=== PATIENT | female | born 1960 | race Caucasian/White ===

== ENCOUNTER 2016-08-14 23:23 | Emergency (ER) | payer MEDICARE, MEDICAID ==
[2016-08-15] MEDS ORDERED: Azithromycin 250 MG TAB ONE (00:46)
[2016-08-15] MEDS ORDERED: methylPREDNISolone Sod Succ/PF 125 MG/2 ML VIAL ONE (00:46)
--- NOTE | 2016-08-15 06:59 | RAD ---
CHEST 2 VIEWS: Date: 08/14/16 Comparison made with the 11/10/15 study. FINDINGS: The heart size is stable. Median sternotomy sutures are seen from prior surgery. There is no vascula r congestion, edema, or pleural fluid. The lungs are hyperexpanded. No lobar consolidations seen. A little haziness in the right cardiophre deion angle and lingula are most likely fat pads. A definite significant infiltrate here could not be confirmed. No nodular densities were seen. The trachea is midline. Mild scoliosis is present. IMPRESSION: Fairly stable exam showing hyperexpanded lungs but no definite acute findings. If symptoms continue and further workup is needed, a CT might be considered to look for pathology that cannot be seen on the chest film. POS: HOME
== END 2016-08-15 01:05 | disposition home or self-care (01) ==
LOC: BURERS 23:23
DX: J44.0 Chronic obstructive pulmonary disease with (acute) lower respiratory infection (principal); J20.9 Acute bronchitis, unspecified; I25.2 Old myocardial infarction; I11.0 Hypertensive heart disease with heart failure; I50.9 Heart failure, unspecified; I25.10 Atherosclerotic heart disease of native coronary artery without angina pectoris; F32.9 Major depressive disorder, single episode, unspecified; F17.210 Nicotine dependence, cigarettes, uncomplicated; Z79.52 Long term (current) use of systemic steroids; Z79.82 Long term (current) use of aspirin; Z79.899 Other long term (current) drug therapy
CPT/HCPCS: 71020; 96372; J2930

== ENCOUNTER 2016-09-22 15:23 | Outpatient (CLI) | payer MEDICARE, MEDICAID ==
[2016-09-22 15:43] LABS: #Basophils 0.1 thou/uL (0.0-0.2); #Eosinphils 0.2 thou/uL (0.0-0.7); #Lymphocytes 2.2 thou/uL (1.20-3.40); #Monocytes 0.3 thou/uL (0.11-0.59); #Neutrophils 3.7 thou/uL (1.40-6.50); %Basophils 1.9 % (0.0-1.0); %Eosinophils 2.9 % (0.0-10.0); %Lymphocytes 33.2 % (21.0-51.0); %Monocytes 4.6 % (0.0-10.0); %Neutrophils 57.4 % (42.0-75.0); Hemoglobin 13.8 g/dL (12.0-16.0); Mean Corpuscular HGB CONC 34.5 g/dL (32.0-36.0); Mean Corpuscular Hemoglobin 31.5 pg (27.0-31.0); Mean Corpuscular Volume 91.4 fl (81.0-99.0); Mean Platelet Volume 7.2 fL (7.4-10.4); Platelet Count 267 thou/uL (130-400); Red Blood Cell (RBC) Count 4.38 mill/uL (4.20-5.40); White Blood Cell (WBC) Count 6.5 thou/uL (4.8-10.8)
[2016-09-22 15:58] LABS: ALT (SGPT) 6 U/L (0-55); AST (SGOT) 12 U/L (5-34); Albumin 3.7 g/dL (3.5-5.0); Alkaline Phosphatase 112 U/L (40-150); Anion Gap 13 mmol/L (10-20); BUN (Urea Nitrogen) 10 mg/dL (9.8-20.1); Bilirubin, Total 0.3 mg/dL (0.2-1.2); Calc. Creatinine Clearance 0 mL/min (70-130); Calcium 8.9 mg/dL (7.8-10.44); Carbon Dioxide 25 mmol/L (22-29); Cardiac Risk 5.4 (Less than 4.5); Chloride 109 mmol/L (98-107); Cholesterol 236 mg/dL (< 200 Desired); Estimated GFR-MDRD 54; Globulin 2.3 g/dL (2.4-3.5); Glucose 90 mg/dL (70-105); HDL Cholesterol 44 mg/dL (>60 Neg Risk); LDL Cholesterol, Calculated 161 mg/dL; Potassium 3.9 mmol/L (3.5-5.1); Sodium 143 mmol/L (136-145); Triglycerides 155 mg/dL (Less than 150)
[2016-09-22 18:38] LABS: Amphetamine Not Detected (NotDetected); Barbiturates Screen Not Detected (NotDetected); Benzodiazepine Screen Not Detected (NotDetected); Cocaine Metabolite Screen Not Detected (NotDetected); Medtox Control Line Valid? VALID (VALID); Methadone Not Detected (NotDetected); Methamphetamine Not Detected (NotDetected); Opiate Screen Detected (NotDetected); Oxycodone Screen Not Detected (NotDetected); Phencyclidine (PCP) Not Detected (NotDetected); THC/Cannabinoid Screen Not Detected (NotDetected); Tricyclic Screen Not Detected (NotDetected)
== END 2016-09-22 15:24 ==
LOC: HPCALD 15:23
PROVIDERS: ATTEND Family Medicine
DX: Z13.6 Encounter for screening for cardiovascular disorders (principal); I10 Essential (primary) hypertension; Z79.891 Long term (current) use of opiate analgesic
CPT/HCPCS: 36415; 80053; 80061; 80306; 85025

== ENCOUNTER 2016-10-16 17:36 | Emergency (ER) | payer MEDICARE, MEDICAID ==
[2016-10-16] MEDS ORDERED: Ondansetron HCl/PF 4 MG/2 ML Vial ONE (17:49)
[2016-10-16] MEDS ORDERED: Nitroglycerin 50 MG/250 ML BOT 250 ML ONE (17:49)
[2016-10-16] MEDS ORDERED: Fentanyl 100 MCG/2 ML VIAL ONE (18:08)
[2016-10-16 18:13] LABS: Band 1 % (5-11); Hemoglobin 13.3 g/dL (12.0-16.0); Lymphocytes 29 % (21-51); MDiff Complete? YES; Mean Corpuscular HGB CONC 34.8 g/dL (32.0-36.0); Mean Corpuscular Hemoglobin 31.2 pg (27.0-31.0); Mean Corpuscular Volume 89.6 fl (81.0-99.0); Mean Platelet Volume 8.5 fL (7.4-10.4); Monocytes 3 % (0-10); Neutrophil 67 % (42-75); Platelet Count 261 thou/uL (130-400); RBC Distribution Width 12.6 % (11.5-14.5); Red Blood Cell (RBC) Count 4.26 mill/uL (4.20-5.40); White Blood Cell (WBC) Count 9.4 thou/uL (4.8-10.8)
[2016-10-16 18:14] LABS: ALT (SGPT) 7 U/L (8-55); AST (SGOT) 18 U/L (5-34); Albumin 3.5 g/dL (3.5-5.0); Alkaline Phosphatase 102 U/L (40-150); Anion Gap 18 mmol/L (10-20); BUN (Urea Nitrogen) 18 mg/dL (9.8-20.1); Bilirubin, Total 0.3 mg/dL (0.2-1.2); Calc. Creatinine Clearance 0 mL/min (70-130); Calcium 8.8 mg/dL (7.8-10.44); Carbon Dioxide 19 mmol/L (22-29); Chloride 107 mmol/L (98-107); Estimated GFR-MDRD 32; Globulin 3.6 g/dL (2.4-3.5); Glucose 96 mg/dL (70-105); Lipase 26 U/L (8-78); Protein, Total 7.1 g/dL (6.0-8.3); Sodium 139 mmol/L (136-145)
[2016-10-16 18:40] LABS: Bilirubin Negative (Negative); Blood, Urine Negative (Negative); Clarity Clear (Clear); Glucose, Urine (Dipstick) Negative (Negative); Leukocyte Negative (Negative); Nitrite Negative (Negative); Protein, Urine (Dipstick) Negative (Neg-Trace); Specific Gravity, Urine 1.005 (1.005-1.030); Urobilinogen 0.2 mg/dL (0.2-1.0)
[2016-10-16 19:00] LABS: CKMB 0.8 ng/mL (0-6.6); Troponin I Less than 0.010 ng/mL (< 0.028)
--- NOTE | 2016-10-17 05:52 | RAD ---
PORTABLE CHEST 10/16/2016 An AP portable film at 1738 hours is compared with a 08/14/2016 study. The heart is normal in size. COPD with flattening of the diaphragm is noted. No acute pulmonary in filtrates were seen. No effusions or signs of vascular congestion were found. IMPRESSION: No acute thoracic findings. POS: HOME
== END 2016-10-16 19:25 | disposition short-term general hospital (02) ==
LOC: BURERS 17:36
DX: I25.110 Atherosclerotic heart disease of native coronary artery with unstable angina pectoris (principal); J43.9 Emphysema, unspecified; I25.2 Old myocardial infarction; Z95.1 Presence of aortocoronary bypass graft; I50.9 Heart failure, unspecified; F17.210 Nicotine dependence, cigarettes, uncomplicated; F32.9 Major depressive disorder, single episode, unspecified; Z79.82 Long term (current) use of aspirin; Z79.899 Other long term (current) drug therapy; I11.0 Hypertensive heart disease with heart failure
CPT/HCPCS: 29515; 36415; 71010; 80053; 81003; 82553; 83690; 83880; 84484; 85025; 93005; 94760; 96365; 96375; J2405; J3010

== ENCOUNTER 2017-04-11 16:00 | Emergency (ER) | payer MEDICARE, MEDICAID ==
[2017-04-11] MEDS ORDERED: Acetaminophen/Codeine 30-300mg Tablet ONE (17:25)
[2017-04-11 17:43] LABS: #Basophils 0.1 thou/uL (0.0-0.2); #Eosinphils 0.1 thou/uL (0.0-0.7); #Lymphocytes 1.5 thou/uL (1.20-3.40); #Monocytes 0.3 thou/uL (0.11-0.59); #Neutrophils 2.1 thou/uL (1.40-6.50); %Basophils 2.4 % (0.0-1.0); %Eosinophils 3.3 % (0.0-10.0); %Monocytes 8.1 % (0.0-10.0); %Neutrophils 50.2 % (42.0-75.0); Hemoglobin 13.6 g/dL (12.0-16.0); Mean Corpuscular HGB CONC 33.9 g/dL (32.0-36.0); Mean Corpuscular Hemoglobin 30.8 pg (27.0-31.0); Mean Platelet Volume 6.6 fL (7.4-10.4); Platelet Count 231 thou/uL (130-400); Red Blood Cell (RBC) Count 4.43 mill/uL (4.20-5.40); White Blood Cell (WBC) Count 4.1 thou/uL (4.8-10.8)
[2017-04-11 18:01] LABS: ALT (SGPT) 20 U/L (8-55); AST (SGOT) 29 U/L (5-34); Alkaline Phosphatase 126 U/L (40-150); Anion Gap 17 mmol/L (10-20); BUN (Urea Nitrogen) 15 mg/dL (9.8-20.1); Bilirubin, Total 0.5 mg/dL (0.2-1.2); Calc. Creatinine Clearance 0 mL/min (70-130); Calcium 9.5 mg/dL (7.8-10.44); Chloride 101 mmol/L (98-107); Estimated GFR-MDRD 45; Globulin 3.6 g/dL (2.4-3.5); Glucose 81 mg/dL (70-105); Potassium 3.5 mmol/L (3.5-5.1); Protein, Total 7.6 g/dL (6.0-8.3); Sodium 139 mmol/L (136-145)
[2017-04-11 18:02] LABS: CKMB 1.8 ng/mL (0-6.6); Troponin I Less than 0.010 ng/mL (< 0.028)
[2017-04-11 18:11] LABS: Carbon Dioxide 25 mmol/L (22-29)
--- NOTE | 2017-04-11 23:58 | RAD ---
CHEST TWO VIEWS 04/11/17 Comparison is made with the 10/16/16 study. The heart is normal in size. The lungs are hyperexpanded as usual. While there is no lobar infiltrate or effusion, there is perhaps a little more streaking in the right lower lobe than before. This area might bear followup if she is not improving. The lungs are otherwise clear. IMPRESSION: Hyperexpanded lungs. Possible mild increase in right basilar streaking. Cannot completely exclude an early infiltrate here. Code T POS: HOME
== END 2017-04-11 18:29 | disposition home or self-care (01) ==
LOC: BURERS 16:00
DX: I11.0 Hypertensive heart disease with heart failure (principal); I50.9 Heart failure, unspecified; R60.9 Edema, unspecified; I25.2 Old myocardial infarction; J44.9 Chronic obstructive pulmonary disease, unspecified; I25.10 Atherosclerotic heart disease of native coronary artery without angina pectoris; F41.9 Anxiety disorder, unspecified; F32.9 Major depressive disorder, single episode, unspecified; F17.210 Nicotine dependence, cigarettes, uncomplicated; Z79.899 Other long term (current) drug therapy; Z79.82 Long term (current) use of aspirin
CPT/HCPCS: 71020; 80053; 82553; 83880; 84484; 85025; 85379; 93005

== ENCOUNTER 2017-07-28 16:19 | Outpatient (CLI) | payer MEDICARE, MEDICAID ==
--- NOTE | 2017-07-28 20:45 | RAD ---
LEFT FOOT THREE VIEWS 07/28/17 No fracture or periosteal reaction was appreciated. There is slight osteopenia to the bones which cou ld mask some very subtle injuries. IMPRESSION: No acute finding. POS: HOME
--- NOTE | 2017-07-28 21:48 | RAD ---
LEFT RIBS THREE VIEWS 07/28/17 The bones are mildly osteopenic . As the result, the sensitivity of the study is lowered. No gross ri b fractures were seen. The lower ribs were seen most poorly. The adjacent lung is clear. There is pne umothorax or pleural effusion. IMPRESSION: No acute bony finding. POS: HOME
== END 2017-07-28 16:20 | disposition home or self-care (01) ==
LOC: BURRAD 16:19
PROVIDERS: ATTEND Family Medicine
DX: M79.672 Pain in left foot (principal); R07.81 Pleurodynia

== ENCOUNTER 2017-09-19 20:27 | Emergency (ER) | payer MEDICARE, MEDICAID ==
--- NOTE | 2017-09-19 21:39 | RAD ---
LEFT ANKLE THREE VIEWS: 09/19/17 HISTORY: Injury, left ankle pain. FINDINGS/IMPRESSION: The ankle mortise is maintained. No acute fracture or dislocation is seen. POS: [facility]
== END 2017-09-19 21:25 | disposition home or self-care (01) ==
LOC: BURERS 20:27
DX: S90.02XA Contusion of left ankle, initial encounter (principal); J43.9 Emphysema, unspecified; I25.2 Old myocardial infarction; I11.0 Hypertensive heart disease with heart failure; I50.9 Heart failure, unspecified; I25.10 Atherosclerotic heart disease of native coronary artery without angina pectoris; F41.9 Anxiety disorder, unspecified; F32.9 Major depressive disorder, single episode, unspecified; F17.210 Nicotine dependence, cigarettes, uncomplicated; Z79.82 Long term (current) use of aspirin; Z79.899 Other long term (current) drug therapy; Z79.51 Long term (current) use of inhaled steroids; W10.9XXA Fall (on) (from) unspecified stairs and steps, initial encounter

== ENCOUNTER 2018-04-07 16:35 | Emergency (ER) | payer MEDICARE, OTHER ==
[2018-04-07] MEDS ORDERED: Bupivacaine 0.5% 10 ML VIAL ONE (17:08)
[2018-04-07] MEDS ORDERED: Ondansetron PF 4 MG/2 ML Vial ONE (17:18)
--- NOTE | 2018-04-07 21:51 | RAD ---
RIGHT WRIST THREE VIEWS 04/07/18 A transverse fracture of the distal radius is present with slight dorsal angulation of the distal fra gment. There is also a displaced fracture of the ulnar styloid. The carpal bones are normal in appear ance and their relationships seem normal. The metacarpals appear intact. IMPRESSION: Colles' fracture of the distal radius and ulna. POS: HOME
== END 2018-04-07 18:16 | disposition home or self-care (01) ==
LOC: BURERS 16:35
DX: S52.531A Colles' fracture of right radius, initial encounter for closed fracture (principal); F41.9 Anxiety disorder, unspecified; F32.9 Major depressive disorder, single episode, unspecified; I25.10 Atherosclerotic heart disease of native coronary artery without angina pectoris; I11.0 Hypertensive heart disease with heart failure; I50.9 Heart failure, unspecified; J44.9 Chronic obstructive pulmonary disease, unspecified; F17.210 Nicotine dependence, cigarettes, uncomplicated; Z79.82 Long term (current) use of aspirin; Z79.899 Other long term (current) drug therapy; Z79.891 Long term (current) use of opiate analgesic; W18.30XA Fall on same level, unspecified, initial encounter
CPT/HCPCS: 25605; 96374; J2405; J3490

== ENCOUNTER 2018-04-14 00:17 | Emergency (ER) | payer MEDICARE, MEDICAID | END 2018-04-14 01:14 | disposition home or self-care (01) | LOC: BURERS 00:17 | DX: S52.531D Colles' fracture of right radius, subsequent encounter for closed fracture with routine healing (principal); J43.9 Emphysema, unspecified; I25.2 Old myocardial infarction; I10 Essential (primary) hypertension; F17.210 Nicotine dependence, cigarettes, uncomplicated; Z79.899 Other long term (current) drug therapy; W01.0XXD Fall on same level from slipping, tripping and stumbling without subsequent striking against object, subsequent encounter | CPT/HCPCS: 29125 ==

== ENCOUNTER 2018-04-20 18:41 | Emergency (ER) | payer MEDICARE, MEDICAID ==
[2018-04-20 19:46] LABS: #Lymphocytes 1.5 thou/uL (1.20-3.40); #Monocytes 0.7 thou/uL (0.11-0.59); #Neutrophils 5.5 thou/uL (1.40-6.50); %Basophils 0.6 % (0.0-1.0); %Eosinophils 0.3 % (0.0-10.0); %Lymphocytes 19.3 % (21.0-51.0); %Monocytes 9.2 % (0.0-10.0); %Neutrophils 70.7 % (42.0-75.0); Hemoglobin 10.4 g/dL (12.0-16.0); Mean Corpuscular Hemoglobin 28.8 pg (27.0-31.0); Mean Corpuscular Volume 87.3 fL (78.0-98.0); Mean Platelet Volume 7.9 fL (7.4-10.4); Platelet Count 243 thou/uL (130-400); RBC Distribution Width 14.4 % (11.5-14.5); Red Blood Cell (RBC) Count 3.61 mill/uL (4.20-5.40); White Blood Cell (WBC) Count 7.8 thou/uL (4.8-10.8)
[2018-04-20 20:20] LABS: BUN (Urea Nitrogen) 13 mg/dL (9.8-20.1); Bilirubin, Total 0.6 mg/dL (0.2-1.2); Calc. Creatinine Clearance 0 mL/min (70-130); Calcium 8.8 mg/dL (7.8-10.44); Carbon Dioxide 26 mmol/L (22-29); Chloride 107 mmol/L (98-107); Estimated GFR-MDRD 79; Globulin 3.3 g/dL (2.4-3.5); Glucose 107 mg/dL (70-105); Potassium 3.5 mmol/L (3.5-5.1); Protein, Total 6.3 g/dL (6.0-8.3); Sodium 144 mmol/L (136-145)
[2018-04-20 20:21] LABS: ALT (SGPT) 17 U/L (8-55); AST (SGOT) 19 U/L (5-34); Alkaline Phosphatase 138 U/L (40-150); CK (CPK) 391 U/L (29-168); Lipase 12 U/L (8-78)
[2018-04-20 20:22] LABS: Anion Gap 15 mmol/L (10-20)
[2018-04-20 21:08] LABS: CKMB 3.2 ng/mL (0-6.6)
[2018-04-20 21:10] LABS: Troponin I 1.044 ng/mL (< 0.028)
--- NOTE | 2018-04-20 21:17 | RAD ---
PORTABLE CHEST: 04/20/18 An AP portable film at 1906 is compared with the prior study of 04/09/18. Mild cardiomegaly is about the same as before. Currently, there does not appear to be true vascular c ongestion, edema, or pleural effusions. The lungs are hyperexpanded as usual. No lobar consolidation was seen. There is slight prominence of the basilar markings which is probably a combination of fibro sis and overlying breast tissue. IMPRESSION: Mild cardiomegaly. Hyperinflated lungs. No definite acute changes. POS: HOME
== END 2018-04-20 21:42 | disposition short-term general hospital (02) ==
LOC: BURERS 18:41
DX: I21.4 Non-ST elevation (NSTEMI) myocardial infarction (principal); I11.0 Hypertensive heart disease with heart failure; I50.9 Heart failure, unspecified; I25.2 Old myocardial infarction; J44.9 Chronic obstructive pulmonary disease, unspecified; I25.10 Atherosclerotic heart disease of native coronary artery without angina pectoris; F41.9 Anxiety disorder, unspecified; F32.9 Major depressive disorder, single episode, unspecified; F17.210 Nicotine dependence, cigarettes, uncomplicated; Z79.899 Other long term (current) drug therapy; Z79.82 Long term (current) use of aspirin
CPT/HCPCS: 36415; 71045; 80053; 82550; 82553; 83690; 83880; 84484; 85025; 93005; 94640; 96360; 96361; J7620

== ENCOUNTER 2018-04-29 09:57 | Inpatient (IN) | payer MEDICARE, MEDICAID ==
[2018-04-29] MEDS ORDERED: clonazePAM 0.5 MG TAB PO PRN (12:09)
[2018-04-29] MEDS ORDERED: tiZANidine HCl 4 MG TAB PO PRN (12:09)
[2018-04-29] MEDS ORDERED: PROVENTIL INHALER 6.7 G (200 INHALATIONS) INH PRN (12:09)
[2018-04-29] MEDS: fentaNYL 50 mcg/hour Patch TD SCH (13:13)
[2018-04-29] MEDS: Acetaminophen/Codeine 30-300mg Tablet PO PRN ×2 (13:19→20:15)
[2018-04-29] MEDS ORDERED: Furosemide 20 MG TAB PO SCH (15:00)
[2018-04-29] MEDS ORDERED: predniSONE 20 MG TAB PO SCH (15:00)
[2018-04-29] MEDS ORDERED: Clopidogrel Bisulfate 75 MG TAB PO SCH (15:00)
[2018-04-29] MEDS: Pregabalin 50 MG CAP PO SCH ×2 (17:15→23:38)
[2018-04-29] MEDS: Ipratropium Bromide 2.5 ml Neb NEB SCH ×2 (17:18→23:43)
[2018-04-29] MEDS: Benzonatate 100 MG CAP PO PRN (17:33)
[2018-04-29] MEDS ORDERED: Mometasone/Formoterol 60 PUFF AER INH SCH (19:00)
[2018-04-29] MEDS ORDERED: Erythromycin Base 0.5% Ophth Oint 3.5 gm Tube ONE (19:52)
[2018-04-29] MEDS: Erythromycin Base 0.5% Ophth Oint 3.5 gm Tube EA EYE SCH (20:08)
[2018-04-29] MEDS: Carvedilol 3.125 MG TAB PO SCH (20:09)
[2018-04-29] MEDS: Rosuvastatin 10 MG TAB PO SCH (20:10)
[2018-04-29] MEDS: Mometasone/Formoterol 60 PUFF AER INH SCH ×2 (20:30→20:38)
[2018-04-29] MEDS: Zolpidem Tartrate 5 MG TAB PO PRN (23:39)
[2018-04-30 05:57] LABS: ALT (SGPT) Less than 7 U/L (8-55); AST (SGOT) 11 U/L (5-34); Alkaline Phosphatase 93 U/L (40-150); Anion Gap 12 mmol/L (10-20); BUN (Urea Nitrogen) 14 mg/dL (9.8-20.1); Bilirubin, Total 0.4 mg/dL (0.2-1.2); Calc. Creatinine Clearance 54 mL/min (70-130); Calcium 8.6 mg/dL (7.8-10.44); Carbon Dioxide 26 mmol/L (22-29); Chloride 103 mmol/L (98-107); Estimated GFR-MDRD 51; Globulin 2.5 g/dL (2.4-3.5); Glucose 105 mg/dL (70-105); Potassium 3.1 mmol/L (3.5-5.1); Protein, Total 5.5 g/dL (6.0-8.3); Sodium 138 mmol/L (136-145)
[2018-04-30] MEDS: Ipratropium Bromide 2.5 ml Neb NEB SCH ×3 (06:20→17:19)
[2018-04-30] MEDS: Mometasone/Formoterol 60 PUFF AER INH SCH ×2 (06:21→18:10)
[2018-04-30 06:26] LABS: #Lymphocytes 2.1 thou/uL (1.20-3.40); #Monocytes 0.5 thou/uL (0.11-0.59); #Neutrophils 4.6 thou/uL (1.40-6.50); %Basophils 0.5 % (0.0-1.0); %Eosinophils 0.5 % (0.0-10.0); %Lymphocytes 28.8 % (21.0-51.0); %Neutrophils 63.2 % (42.0-75.0); Hemoglobin 11.6 g/dL (12.0-16.0); Mean Corpuscular HGB CONC 34.2 g/dL (32.0-36.0); Mean Corpuscular Hemoglobin 28.7 pg (27.0-31.0); Mean Corpuscular Volume 83.9 fL (78.0-98.0); Mean Platelet Volume 7.5 fL (7.4-10.4); Platelet Count 220 thou/uL (130-400); Red Blood Cell (RBC) Count 4.03 mill/uL (4.20-5.40); White Blood Cell (WBC) Count 7.3 thou/uL (4.8-10.8)
[2018-04-30] MEDS: predniSONE 20 MG TAB PO SCH (08:21)
[2018-04-30] MEDS: Pregabalin 50 MG CAP PO SCH ×3 (08:22→20:47)
[2018-04-30] MEDS: Furosemide 20 MG TAB PO SCH (08:22)
[2018-04-30] MEDS: Clopidogrel Bisulfate 75 MG TAB PO SCH (08:24)
[2018-04-30] MEDS: Erythromycin Base 0.5% Ophth Oint 3.5 gm Tube EA EYE SCH ×2 (08:25→20:48)
[2018-04-30] MEDS: Carvedilol 3.125 MG TAB PO SCH ×2 (08:25→20:46)
[2018-04-30] MEDS: Acetaminophen/Codeine 30-300mg Tablet PO PRN ×3 (08:30→22:45)
[2018-04-30] MEDS: Benzonatate 100 MG CAP PO PRN (08:39)
[2018-04-30] MEDS ORDERED: clonazePAM 0.5 MG TAB PO PRN (12:17)
[2018-04-30] MEDS: clonazePAM 1 MG TAB PO PRN (12:39)
[2018-04-30] MEDS ORDERED: Potassium Chloride 20 MEQ TAB PO SCH (15:30)
[2018-04-30] MEDS: Rosuvastatin 10 MG TAB PO SCH (20:46)
[2018-04-30] MEDS: Zolpidem Tartrate 5 MG TAB PO PRN (22:46)
[2018-05-01] MEDS: Ipratropium Bromide 2.5 ml Neb NEB SCH ×4 (00:52→18:33)
[2018-05-01] MEDS: Benzonatate 100 MG CAP PO PRN ×2 (02:43→11:23)
[2018-05-01] MEDS: clonazePAM 1 MG TAB PO PRN ×2 (02:43→22:48)
[2018-05-01] MEDS: Mometasone/Formoterol 60 PUFF AER INH SCH ×2 (06:27→18:37)
[2018-05-01] MEDS: Acetaminophen/Codeine 30-300mg Tablet PO PRN ×2 (06:37→14:58)
[2018-05-01] MEDS: Clopidogrel Bisulfate 75 MG TAB PO SCH (08:22)
[2018-05-01] MEDS: Carvedilol 3.125 MG TAB PO SCH ×2 (08:23→21:04)
[2018-05-01] MEDS: predniSONE 20 MG TAB PO SCH (08:23)
[2018-05-01] MEDS: Furosemide 20 MG TAB PO SCH (08:24)
[2018-05-01] MEDS: Erythromycin Base 0.5% Ophth Oint 3.5 gm Tube EA EYE SCH ×3 (08:24→21:04)
[2018-05-01] MEDS: Potassium Chloride 20 MEQ TAB PO SCH (08:24)
[2018-05-01] MEDS: Pregabalin 50 MG CAP PO SCH ×3 (08:25→21:03)
[2018-05-01] MEDS: Ondansetron ODT 4 MG TAB PO PRN (14:59)
[2018-05-01] MEDS: Rosuvastatin 10 MG TAB PO SCH (21:03)
[2018-05-02] MEDS: Ipratropium Bromide 2.5 ml Neb NEB SCH ×4 (03:13→17:29)
[2018-05-02] MEDS: Mometasone/Formoterol 60 PUFF AER INH SCH ×2 (06:22→18:18)
[2018-05-02] MEDS: Ondansetron ODT 4 MG TAB PO PRN (09:30)
[2018-05-02] MEDS: Pregabalin 50 MG CAP PO SCH ×3 (09:31→21:32)
[2018-05-02] MEDS: Clopidogrel Bisulfate 75 MG TAB PO SCH (09:32)
[2018-05-02] MEDS: Potassium Chloride 20 MEQ TAB PO SCH (09:33)
[2018-05-02] MEDS: Carvedilol 3.125 MG TAB PO SCH ×2 (09:33→21:33)
[2018-05-02] MEDS: predniSONE 20 MG TAB PO SCH (09:34)
[2018-05-02] MEDS: Furosemide 20 MG TAB PO SCH (09:34)
[2018-05-02] MEDS: Erythromycin Base 0.5% Ophth Oint 3.5 gm Tube EA EYE SCH ×2 (09:37→21:34)
[2018-05-02] MEDS: Acetaminophen/Codeine 30-300mg Tablet PO PRN ×3 (09:41→23:29)
[2018-05-02] MEDS: fentaNYL 50 mcg/hour Patch TD SCH (12:12)
[2018-05-02] MEDS: Rosuvastatin 10 MG TAB PO SCH (21:33)
[2018-05-03] MEDS: Ipratropium Bromide 2.5 ml Neb NEB SCH ×5 (02:44→23:35)
[2018-05-03] MEDS: Mometasone/Formoterol 60 PUFF AER INH SCH ×2 (06:03→18:47)
[2018-05-03 08:32] LABS: Anion Gap 13 mmol/L (10-20); BUN (Urea Nitrogen) 21 mg/dL (9.8-20.1); Calc. Creatinine Clearance 51 mL/min (70-130); Carbon Dioxide 25 mmol/L (22-29); Chloride 106 mmol/L (98-107); Estimated GFR-MDRD 46; Glucose 92 mg/dL (70-105); Sodium 141 mmol/L (136-145)
[2018-05-03] MEDS ORDERED: Potassium Chloride 20 MEQ TAB ONE (08:45)
[2018-05-03] MEDS: predniSONE 20 MG TAB PO SCH (08:55)
[2018-05-03] MEDS: Potassium Chloride 20 MEQ TAB PO SCH (08:56)
[2018-05-03] MEDS ORDERED: Acetaminophen/Codeine 30-300mg Tablet ONE (09:02)
[2018-05-03] MEDS: Acetaminophen/Codeine 30-300mg Tablet PO PRN ×2 (09:06→20:56)
[2018-05-03 09:47] LABS: Potassium 2.9 mmol/L (3.5-5.1)
[2018-05-03] MEDS ORDERED: Potassium Chloride 20 MEQ TAB PO SCH (10:30)
[2018-05-03] MEDS: Carvedilol 3.125 MG TAB PO SCH ×2 (10:51→20:56)
[2018-05-03] MEDS: Furosemide 20 MG TAB PO SCH (10:51)
[2018-05-03] MEDS: Clopidogrel Bisulfate 75 MG TAB PO SCH (10:52)
[2018-05-03] MEDS: Erythromycin Base 0.5% Ophth Oint 3.5 gm Tube EA EYE SCH ×2 (10:54→20:58)
[2018-05-03] MEDS: Pregabalin 50 MG CAP PO SCH ×3 (11:01→20:54)
[2018-05-03] MEDS: Rosuvastatin 10 MG TAB PO SCH (20:53)
[2018-05-04 05:14] VITALS: BMI 23.8
[2018-05-04 05:16] VITALS: BP 124/70; TEMP 97.9
[2018-05-04] MEDS: Mometasone/Formoterol 60 PUFF AER INH SCH (06:00)
[2018-05-04] MEDS: Ipratropium Bromide 2.5 ml Neb NEB SCH (06:02)
[2018-05-04 06:16] LABS: Anion Gap 13 mmol/L (10-20); BUN (Urea Nitrogen) 21 mg/dL (9.8-20.1); Calc. Creatinine Clearance 55 mL/min (70-130); Calcium 9.1 mg/dL (7.8-10.44); Carbon Dioxide 25 mmol/L (22-29); Chloride 107 mmol/L (98-107); Estimated GFR-MDRD 51; Glucose 86 mg/dL (70-105); Potassium 3.7 mmol/L (3.5-5.1); Sodium 141 mmol/L (136-145)
[2018-05-04] MEDS ORDERED: Potassium Chloride 20 MEQ TAB PO SCH (08:00)
--- NOTE | 2018-05-05 04:50 | DIS ---
DATE OF ADMISSION: 04/29/2018 DATE OF DISCHARGE: 05/04/2018 ADMISSION DIAGNOSES: Physical deconditioning; left lower lobe community- acquired pneumonia; chronic obstructive pulmonary disease; chronic diastolic congestive heart failure, status post myocardial infarction; hypokalemia; and right distal radius fracture. PROCEDURES: None. HOSPITAL COURSE: A 58-year-old female transitioned to our facility to participate with physical therapy and occupational therapy secondary to physical deconditioning. Prior to this, she was admitted and treated at [facility] in [place] for acute on chronic diastolic congestive heart failure, chronic obstructive pulmonary disease exacerbation, left lower lobe community acquired pneumonia, and hypokalemia. She completed a course of p.o. Levaquin and p.o. prednisone while here. She remained euvolemic during her stay here. Her splint was replaced with a removable brace regarding her right distal radius fracture. She remained on room air during her stay here. She was able to work with Physical Therapy and Occupational Therapy to meet the goals set forth to be able to return back to her home setting. She has [facility] to further continue with transition of care. She feels to be back to her baseline and appropriate for discharge home at this time. Only medication change during her stay will be an increase of her potassium supplementation from 20mEq to 40mEq due to hypokalemia during her stay. On the day of discharge , her potassium is back to normal at 3.7. DISPOSITION: The patient will be discharged to her home setting, and may follow up with myself in the clinic next week. She will have [facility] for further physical therapy and occupational therapy. DISCHARGE MEDICATIONS: Include; 1. ProAir HFA 2 puffs q.4 hours p.r.n. 2. Tylenol No. 3 one tab q.6 hours p.r.n. 3. Amitiza 8 mcg p.o. b.i.d. 4. Tessalon Perles 100 mg p.o. t.i.d. p.r.n. 5. Coreg 6.25 mg p.o. b.i.d. 6. Clonazepam 0.5 mg p.o. b.i.d. 7. Nexium 40 mg p.o. daily. 8. Fentanyl patch 50 mcg q.72 hours transdermal. 9. Advair b.i.d. 10. Lasix 20 mg p.o. daily. 11. Lyrica 100 mg p.o. t.i.d. 12. Crestor 40 mg p.o. at bedtime. 13. Zoloft 150 mg p.o. daily. 14. Spiriva 18 mcg inhaled daily. 15. Zanaflex 4 mg t.i.d. p.r.n. 16. Aspirin 81 mg p.o. daily. 17. Plavix 75 mg p.o. daily. 18. Ambien 5 mg p.o. at bedtime p.r.n. 19. Potassium chloride 40 mEq p.o. daily. Job ID: [id number] MTDD
== END 2018-05-04 09:02 | disposition home health service (06) | DRG 947 ==
LOC: BURMED 10:25
PROVIDERS: ADMIT Family Medicine; ATTEND Family Medicine
DX: R53.81 Other malaise (principal); J18.1 Lobar pneumonia, unspecified organism; I50.32 Chronic diastolic (congestive) heart failure; J44.0 Chronic obstructive pulmonary disease with (acute) lower respiratory infection; S52.501D Unspecified fracture of the lower end of right radius, subsequent encounter for closed fracture with routine healing; E87.6 Hypokalemia; I25.2 Old myocardial infarction; Z79.82 Long term (current) use of aspirin; Z88.0 Allergy status to penicillin; Z88.2 Allergy status to sulfonamides; Z88.8 Allergy status to other drugs, medicaments and biological substances; Z79.02 Long term (current) use of antithrombotics/antiplatelets; Z79.899 Other long term (current) drug therapy; X58.XXXD Exposure to other specified factors, subsequent encounter
CPT/HCPCS: 36415; 80048; 80053; 85025; 94640; 94664; G8978-GP-CJ; G8979-GP-CI; G8987-GO-CJ; G8988-GO-CI; J7506; J7620; Q0162

== ENCOUNTER 2018-05-07 14:14 | Outpatient (CLI) | payer MEDICARE, MEDICAID ==
--- NOTE | 2018-05-07 19:42 | RAD ---
RIGHT WRIST THREE VIEWS: 05/07/18 Comparison is made with the 04/22 study. The cast has been removed. The impacted fracture of the dist al radius and fracture of the ulnar styloid are again noted. There is still some dorsal angulation o f the distal radial fragment. Callus seems incomplete at this point. IMPRESSION: Fracture of the distal radius and ulnar styloid without significant healing at this point. POS: HOME
== END 2018-05-07 14:15 | disposition home or self-care (01) ==
LOC: BURRAD 14:14
PROVIDERS: ATTEND Family Medicine
DX: S52.501S Unspecified fracture of the lower end of right radius, sequela (principal); S52.611D Displaced fracture of right ulna styloid process, subsequent encounter for closed fracture with routine healing

== ENCOUNTER 2019-03-05 13:37 | Emergency (ER) | payer MEDICARE, MEDICAID ==
--- NOTE | 2019-03-05 15:36 | RAD ---
Right forearm 2 views HISTORY: Right arm injury. COMPARISON: 05/07/2018. FINDINGS: Healed distal radial fracture with persistent dorsal angulation is apparent. No acute fract ures visible. Ulnar styloid avulsion noted. Osseous structures are markedly demineralized. IMPRESSION: Old distal radial fracture with persistent angulation. No acute osseous abnormalities are demonstrated. Osteoporosis.
== END 2019-03-05 14:21 | disposition home or self-care (01) ==
LOC: BURERS 13:37
DX: M25.531 Pain in right wrist (principal); I25.2 Old myocardial infarction; I11.0 Hypertensive heart disease with heart failure; I50.9 Heart failure, unspecified; J44.9 Chronic obstructive pulmonary disease, unspecified; I25.10 Atherosclerotic heart disease of native coronary artery without angina pectoris; F41.9 Anxiety disorder, unspecified; F32.9 Major depressive disorder, single episode, unspecified; F17.210 Nicotine dependence, cigarettes, uncomplicated; Z79.899 Other long term (current) drug therapy; Z79.82 Long term (current) use of aspirin; Z79.51 Long term (current) use of inhaled steroids; W19.XXXA Unspecified fall, initial encounter

== ENCOUNTER 2019-08-02 19:00 | Emergency (ER) | payer MEDICARE, MEDICAID ==
[2019-08-02 19:45] LABS: #Basophils 0.1 thou/uL (0.0-0.2); #Eosinphils 0.2 thou/uL (0.0-0.7); #Lymphocytes 2.3 thou/uL (1.20-3.40); #Monocytes 0.4 thou/uL (0.11-0.59); #Neutrophils 4.5 thou/uL (1.40-6.50); %Basophils 1.3 % (0.0-1.0); %Eosinophils 2.2 % (0.0-10.0); %Lymphocytes 30.6 % (21.0-51.0); Hemoglobin 14.3 g/dL (12.0-16.0); Mean Corpuscular Volume 87.5 fL (78.0-98.0); Mean Platelet Volume 6.1 fL (7.4-10.4); Platelet Count 322 thou/uL (130-400); RBC Distribution Width 12.9 % (11.5-14.5); Red Blood Cell (RBC) Count 5.12 mill/uL (4.20-5.40); White Blood Cell (WBC) Count 7.4 thou/uL (4.8-10.8)
[2019-08-02 20:00] LABS: ALT (SGPT) 8 U/L (8-55); AST (SGOT) 18 U/L (5-34); Albumin 4.2 g/dL (3.4-4.8); Alkaline Phosphatase 136 U/L (40-110); Anion Gap 16 mmol/L (10-20); BUN (Urea Nitrogen) 11 mg/dL (9.8-20.1); Bilirubin, Total 0.4 mg/dL (0.2-1.2); Calc. Creatinine Clearance 0 mL/min (70-130); Calcium 9.6 mg/dL (7.8-10.44); Carbon Dioxide 26 mmol/L (23-31); Chloride 104 mmol/L (98-107); Estimated GFR-MDRD 56; Globulin 2.9 g/dL (2.4-3.5); Glucose 95 mg/dL (80-115); Potassium 4.8 mmol/L (3.5-5.1); Protein, Total 7.1 g/dL (6.0-8.3); Sodium 141 mmol/L (136-145)
--- NOTE | 2019-08-02 20:26 | RAD ---
PA AND LATERAL CHEST: 08/02/19 HISTORY: Shortness of breath x2 months. COMPARISON: 04/11/17 study. Heart size is within normal limits. There are postop sternotomy changes. Chronic lung changes are see n. No focal infiltrates. The bones are demineralized. IMPRESSION: Chronic lung change. POS: [facility]
[2019-08-02] MEDS ORDERED: predniSONE 20 MG TAB ONE ×2 (20:31→20:32)
[2019-08-02] MEDS ORDERED: Doxycycline 100 MG CAP ONE (20:33)
[2019-08-02] MEDS ORDERED: Acetaminophen 325 MG TAB ONE (20:33)
[2019-08-02] MEDS ORDERED: Oseltamivir 75 MG CAP ONE (20:35)
== END 2019-08-02 20:50 | disposition home or self-care (01) ==
LOC: BURERS 19:00
DX: J44.1 Chronic obstructive pulmonary disease with (acute) exacerbation (principal); I25.2 Old myocardial infarction; I11.0 Hypertensive heart disease with heart failure; I50.9 Heart failure, unspecified; I25.10 Atherosclerotic heart disease of native coronary artery without angina pectoris; F41.9 Anxiety disorder, unspecified; F32.9 Major depressive disorder, single episode, unspecified; F17.210 Nicotine dependence, cigarettes, uncomplicated; Z79.899 Other long term (current) drug therapy; Z79.82 Long term (current) use of aspirin; Z79.51 Long term (current) use of inhaled steroids
CPT/HCPCS: 71046; 80053; 83605; 84484; 85025; 93005; 94760; J7512

== ENCOUNTER 2019-12-14 20:54 | Emergency (ER) | payer MEDICARE, MEDICAID, OTHER ==
--- NOTE | 2019-12-15 07:00 | RAD ---
PORTABLE CHEST: Date: 12/14/2019 Comparison is made with the 08/02/2019 study. The heart is normal in size. Median sternotomy sutures are seen from prior surgery. The lungs are hyp erexpanded, but no acute infiltrate or effusion seen. The left hilum is a little more prominent than the right, but this may be due to the patient being turned very slightly. Should symptoms continue, t hen a follow-up CT could be needed to clear any pathology here. IMPRESSION: 1. Hyperexpanded lungs, but no definite acute findings. 2. Very minimal prominence of the left hilum, thought to be due to rotation of the patient. Follow-u p if symptoms do not improve. CODE T. POS: HOME
[2019-12-16 12:53] LABS: SARS-CoV-2 MS2 Positive; SARS-CoV-2 N Gene Negative; SARS-CoV-2 S Gene Negative; SARS-CoV-2 orf1ab Negative
== END 2019-12-14 21:43 | disposition home or self-care (01) ==
LOC: BURERS 20:54
DX: J44.9 Chronic obstructive pulmonary disease, unspecified (principal); I25.2 Old myocardial infarction; I11.0 Hypertensive heart disease with heart failure; I50.9 Heart failure, unspecified; I25.10 Atherosclerotic heart disease of native coronary artery without angina pectoris; F41.9 Anxiety disorder, unspecified; F32.9 Major depressive disorder, single episode, unspecified; F17.210 Nicotine dependence, cigarettes, uncomplicated; Z79.899 Other long term (current) drug therapy; Z79.82 Long term (current) use of aspirin; Z79.51 Long term (current) use of inhaled steroids; Z20.828 Contact with and (suspected) exposure to other viral communicable diseases
CPT/HCPCS: 71045; 87635; U0003

== ENCOUNTER 2020-02-04 10:16 | Emergency (ER) | payer MEDICARE, MEDICAID ==
[2020-02-04 10:52] LABS: #Basophils 0.1 thou/uL (0.0-0.2); #Eosinphils 0.2 thou/uL (0.0-0.7); #Lymphocytes 2.7 thou/uL (1.20-3.40); #Monocytes 0.4 thou/uL (0.11-0.59); #Neutrophils 3.3 thou/uL (1.40-6.50); %Basophils 1.4 % (0.0-1.0); %Eosinophils 2.9 % (0.0-10.0); %Lymphocytes 40.3 % (21.0-51.0); %Neutrophils 49.4 % (42.0-75.0); Hemoglobin 11.6 g/dL (12.0-16.0); Mean Corpuscular HGB CONC 31.4 g/dL (32.0-36.0); Mean Corpuscular Hemoglobin 28.1 pg (27.0-31.0); Mean Corpuscular Volume 89.4 fL (78.0-98.0); Mean Platelet Volume 6.4 fL (7.4-10.4); Platelet Count 228 thou/uL (130-400); RBC Distribution Width 13.1 % (11.5-14.5); Red Blood Cell (RBC) Count 4.14 mill/uL (4.20-5.40); White Blood Cell (WBC) Count 6.7 thou/uL (4.8-10.8)
[2020-02-04 11:05] LABS: Base Excess-Venous 1.4 mmol/L (-2.0 to 3.0); Bicarbonate (HCO3v) 26.3 mmol/L (22.0-28.0); CO2 Tension (PvCO2) 41.9 mmHg (40.0-50.0); Calcium, Ionized 1.18 mmol/L (See Comments:); Chloride 106 mmol/L (98-107); Hemoglobin - Calc 12.4 g/dL (12.0-16.0); Potassium 3.6 mmol/L (3.5-5.1); Sodium 142 mmol/L (138-145); T. Carbon Dioxide 27.6 mmol/L (22.0-28.0); vO2 Saturation-calc 89.4 % (60.0-85.0)
[2020-02-04 11:08] LABS: ALT (SGPT) 9 U/L (8-55); AST (SGOT) 13 U/L (5-34); Albumin 3.8 g/dL (3.4-4.8); Alkaline Phosphatase 116 U/L (40-110); Anion Gap 13 mmol/L (10-20); BUN (Urea Nitrogen) 14 mg/dL (9.8-20.1); Bilirubin, Total 0.3 mg/dL (0.2-1.2); Calc. Creatinine Clearance 0 mL/min (70-130); Carbon Dioxide 27 mmol/L (23-31); Chloride 105 mmol/L (98-107); Estimated GFR-MDRD 60; Globulin 2.7 g/dL (2.4-3.5); Glucose 87 mg/dL (80-115); Potassium 3.7 mmol/L (3.5-5.1); Protein, Total 6.5 g/dL (6.0-8.3); Sodium 141 mmol/L (136-145)
[2020-02-04] MEDS ORDERED: methylPREDNISolone Sod Succ/PF 125 MG/2 ML VIAL ONE (11:08)
[2020-02-04] MEDS ORDERED: Albuterol Sulfate 2.5 mg/3 ml Neb ONE (11:22)
[2020-02-04] MEDS ORDERED: Magnesium 2 GM/50 ML BAG (IN WATER) ONE (11:22)
[2020-02-04] MEDS ORDERED: Ibuprofen 800 MG TAB ONE (12:08)
--- NOTE | 2020-02-04 13:39 | RAD ---
PORTABLE CHEST 02/04/20 An AP portable film at 1039 is compared with a 12/13 exam. COPD is noted as usual with flattening of the diaphragm. The heart size is stable. While there is no gross pulmonary edema or effusion, in general the vasculature is a little more prominent than it was before and the interstitial markings are perhaps minimally more prominent. I cannot rule out very ear ly congestion, but the finding is borderline. IMPRESSION: 1. COPD. 2. Borderline increased prominence of vessels and interstitium. POS: HOME
== END 2020-02-04 12:29 | disposition home or self-care (01) ==
LOC: BURERS 10:16
DX: J44.1 Chronic obstructive pulmonary disease with (acute) exacerbation (principal); I25.2 Old myocardial infarction; I11.0 Hypertensive heart disease with heart failure; I50.9 Heart failure, unspecified; F41.9 Anxiety disorder, unspecified; F32.9 Major depressive disorder, single episode, unspecified; F17.210 Nicotine dependence, cigarettes, uncomplicated; Z79.899 Other long term (current) drug therapy; Z79.82 Long term (current) use of aspirin
CPT/HCPCS: 71045; 80053; 82330; 82803; 83880; 84484; 85025; 85379; 93005; 94640; 94760; 96365; 96375; J2930; J3475; J7611; J7620

== ENCOUNTER 2020-03-04 12:21 | Emergency (ER) | payer MEDICARE, MEDICAID ==
[2020-03-04] MEDS ORDERED: Lidocaine 1% w/Epinephrine 1:100K 20 ML VIAL ONE (12:31)
== END 2020-03-04 12:55 | disposition home or self-care (01) ==
LOC: BURERS 12:21
DX: L02.811 Cutaneous abscess of head [any part, except face] (principal); I25.2 Old myocardial infarction; I11.0 Hypertensive heart disease with heart failure; I50.9 Heart failure, unspecified; J44.9 Chronic obstructive pulmonary disease, unspecified; I25.10 Atherosclerotic heart disease of native coronary artery without angina pectoris; F32.9 Major depressive disorder, single episode, unspecified; F41.9 Anxiety disorder, unspecified; F17.210 Nicotine dependence, cigarettes, uncomplicated; Z79.82 Long term (current) use of aspirin; Z79.899 Other long term (current) drug therapy
CPT/HCPCS: 10060

== ENCOUNTER 2020-03-07 14:00 | Emergency (ER) | payer MEDICARE, MEDICAID ==
[2020-03-07] MEDS ORDERED: Clindamycin 150 MG CAP ONE (15:38)
== END 2020-03-07 15:41 | disposition home or self-care (01) ==
LOC: BURERS 14:00
DX: L03.221 Cellulitis of neck (principal); I25.2 Old myocardial infarction; I11.0 Hypertensive heart disease with heart failure; I50.9 Heart failure, unspecified; J44.9 Chronic obstructive pulmonary disease, unspecified; I25.10 Atherosclerotic heart disease of native coronary artery without angina pectoris; F41.9 Anxiety disorder, unspecified; F32.9 Major depressive disorder, single episode, unspecified; F17.210 Nicotine dependence, cigarettes, uncomplicated; Z79.899 Other long term (current) drug therapy; Z79.82 Long term (current) use of aspirin
CPT/HCPCS: 99282

== ENCOUNTER 2020-03-11 10:10 | Emergency (ER) | payer MEDICARE, MEDICAID | END 2020-03-11 10:44 | disposition home or self-care (01) | LOC: BURERS 10:10 | DX: Z48.817 Encounter for surgical aftercare following surgery on the skin and subcutaneous tissue (principal); I25.2 Old myocardial infarction; I11.0 Hypertensive heart disease with heart failure; I50.9 Heart failure, unspecified; J44.9 Chronic obstructive pulmonary disease, unspecified; I25.10 Atherosclerotic heart disease of native coronary artery without angina pectoris; F32.9 Major depressive disorder, single episode, unspecified; F41.9 Anxiety disorder, unspecified; F17.210 Nicotine dependence, cigarettes, uncomplicated; Z79.899 Other long term (current) drug therapy | CPT/HCPCS: 99282 ==

== ENCOUNTER 2020-05-14 03:50 | Emergency (ER) | payer MEDICARE, MEDICAID ==
[2020-05-14] MEDS ORDERED: Albuterol 200 PUFF (6.7GM INHALER) ONE (04:00)
[2020-05-14] MEDS ORDERED: Dexamethasone 4 MG TAB ONE (04:01)
[2020-05-14 04:39] LABS: #Basophils 0.1 thou/uL (0.0-0.2); #Eosinphils 0.2 thou/uL (0.0-0.7); #Lymphocytes 2.1 thou/uL (1.20-3.40); #Monocytes 0.5 thou/uL (0.11-0.59); #Neutrophils 6.1 thou/uL (1.40-6.50); %Basophils 1.5 % (0.0-1.0); %Lymphocytes 23.1 % (21.0-51.0); %Monocytes 5.2 % (0.0-10.0); %Neutrophils 68.2 % (42.0-75.0); Hemoglobin 12.1 g/dL (12.0-16.0); Mean Corpuscular HGB CONC 33.1 g/dL (32.0-36.0); Mean Corpuscular Hemoglobin 28.7 pg (27.0-31.0); Mean Corpuscular Volume 86.7 fL (78.0-98.0); Mean Platelet Volume 6.1 fL (7.4-10.4); Platelet Count 214 thou/uL (130-400); RBC Distribution Width 13.3 % (11.5-14.5); Red Blood Cell (RBC) Count 4.23 mill/uL (4.20-5.40); White Blood Cell (WBC) Count 8.9 thou/uL (4.8-10.8)
[2020-05-14 04:52] LABS: ALT (SGPT) 18 U/L (8-55); AST (SGOT) 28 U/L (5-34); Albumin 3.7 g/dL (3.4-4.8); Alkaline Phosphatase 98 U/L (40-110); Anion Gap 13 mmol/L (10-20); BUN (Urea Nitrogen) 13 mg/dL (9.8-20.1); Bilirubin, Total 0.4 mg/dL (0.2-1.2); Calc. Creatinine Clearance 0 mL/min (70-130); Calcium 8.8 mg/dL (7.8-10.44); Carbon Dioxide 24 mmol/L (23-31); Chloride 108 mmol/L (98-107); Globulin 2.9 g/dL (2.4-3.5); Glucose 104 mg/dL (80-115); Potassium 3.9 mmol/L (3.5-5.1); Protein, Total 6.6 g/dL (6.0-8.3); Sodium 141 mmol/L (136-145)
[2020-05-14] MEDS ORDERED: Acetaminophen 500 MG TAB ONE (05:18)
[2020-05-14] MEDS ORDERED: Aspirin Chewable 81 MG TAB ONE (05:42)
[2020-05-14] MEDS ORDERED: Enoxaparin Sodium 100 MG/ML SYRINGE ONE (05:42)
[2020-05-14] MEDS ORDERED: Furosemide 40 MG/4 ML VIAL ONE (05:42)
--- NOTE | 2020-05-14 07:04 | RAD ---
PORTABLE CHEST: Date: 05/14/2020 An AP portable film at 0514 hours is compared with a 02/04/2020 study. Findings of COPD are present as usual. No lobar infiltrate or effusion seen. No parenchymal findings that seem much different than before. The heart is stable in size. There is no vascular congestion or edema. Median sternotomy sutures are noted from prior surgery. IMPRESSION: COPD, but no acute findings. POS: HOME
[2020-05-14 14:57] LABS: SARS-CoV-2 MS2 Positive; SARS-CoV-2 N Gene Negative; SARS-CoV-2 S Gene Negative; SARS-CoV-2 by NAA Not Detected (NotDetected); SARS-CoV-2 orf1ab Negative
== END 2020-05-14 06:00 | disposition short-term general hospital (02) ==
LOC: BURERS 03:50
DX: I11.0 Hypertensive heart disease with heart failure (principal); I50.9 Heart failure, unspecified; J44.9 Chronic obstructive pulmonary disease, unspecified; I25.10 Atherosclerotic heart disease of native coronary artery without angina pectoris; Z95.1 Presence of aortocoronary bypass graft; F17.210 Nicotine dependence, cigarettes, uncomplicated; Z79.899 Other long term (current) drug therapy
CPT/HCPCS: 71045; 80053; 82553; 83880; 84484; 85025; 93005; U0003; 36415; 87635; 96372; 96374; J1650; J1940; J8540

== ENCOUNTER 2020-12-19 11:30 | Emergency (ER) | payer MEDICARE, MEDICAID ==
[2020-12-19] MEDS ORDERED: Albuterol Sulfate 1.25 MG/3 ML NEB ONE (12:06)
[2020-12-19] MEDS ORDERED: methylPREDNISolone Sod Succ/PF 125 MG/2 ML VIAL ONE (12:06)
[2020-12-19] MEDS ORDERED: Magnesium 2 GM/50 ML BAG (IN WATER) ONE (12:06)
[2020-12-19] MEDS ORDERED: Albuterol Sulfate 2.5 mg/0.5 ml Neb ONE (12:07)
[2020-12-19 12:12] LABS: #Basophils 0.1 thou/uL (0.0-0.2); #Eosinphils 0.5 thou/uL (0.0-0.7); #Lymphocytes 2.1 thou/uL (1.20-3.40); #Monocytes 0.4 thou/uL (0.11-0.59); #Neutrophils 6.5 thou/uL (1.40-6.50); %Eosinophils 5.4 % (0.0-10.0); %Lymphocytes 22.1 % (21.0-51.0); %Neutrophils 67.6 % (42.0-75.0); Hemoglobin 12.9 g/dL (12.0-16.0); Mean Corpuscular HGB CONC 30.8 g/dL (32.0-36.0); Mean Corpuscular Hemoglobin 28.4 pg (27.0-31.0); Mean Platelet Volume 6.4 fL (7.4-10.4); Platelet Count 277 thou/uL (130-400); RBC Distribution Width 16.2 % (11.5-14.5); Red Blood Cell (RBC) Count 4.53 mill/uL (4.20-5.40); White Blood Cell (WBC) Count 9.6 thou/uL (4.8-10.8)
[2020-12-19 12:28] LABS: ALT (SGPT) 27 U/L (8-55); AST (SGOT) 55 U/L (5-34); Albumin 3.3 g/dL (3.4-4.8); Alkaline Phosphatase 128 U/L (40-110); Anion Gap 13 mmol/L (10-20); BUN (Urea Nitrogen) 10 mg/dL (9.8-20.1); Bilirubin, Total 0.3 mg/dL (0.2-1.2); Calc. Creatinine Clearance 0 mL/min (70-130); Calcium 8.7 mg/dL (7.8-10.44); Carbon Dioxide 26 mmol/L (23-31); Chloride 106 mmol/L (98-107); Globulin 3.1 g/dL (2.4-3.5); Glucose 105 mg/dL (80-115); Potassium 4.6 mmol/L (3.5-5.1); Protein, Total 6.4 g/dL (5.8-8.1); Sodium 140 mmol/L (136-145)
[2020-12-20 12:12] LABS: SARS-CoV-2 PCR by NAA Not Detected (NotDetected)
== END 2020-12-19 14:34 | disposition home or self-care (01) ==
LOC: BURERS 11:30
DX: J44.1 Chronic obstructive pulmonary disease with (acute) exacerbation (principal); Z20.822 Contact with and (suspected) exposure to COVID-19; I11.0 Hypertensive heart disease with heart failure; I50.9 Heart failure, unspecified; I25.10 Atherosclerotic heart disease of native coronary artery without angina pectoris; I25.2 Old myocardial infarction; F17.210 Nicotine dependence, cigarettes, uncomplicated
CPT/HCPCS: 71045; 80053; 83605; 85025; 87040; 94640; 94760; 96374; 96375; 99285; U0003; U0005; 36415; J2930; J3475; J7611

== ENCOUNTER 2021-01-25 | Emergency (ER) | payer MEDICARE, MEDICAID | END 2021-01-25 05:50 | disposition short-term general hospital (02) | DX: J44.1 Chronic obstructive pulmonary disease with (acute) exacerbation (principal); R94.31 Abnormal electrocardiogram [ECG] [EKG]; E87.6 Hypokalemia; I25.2 Old myocardial infarction; I11.0 Hypertensive heart disease with heart failure; I50.9 Heart failure, unspecified; I25.10 Atherosclerotic heart disease of native coronary artery without angina pectoris; F17.210 Nicotine dependence, cigarettes, uncomplicated; Z79.82 Long term (current) use of aspirin; Z79.899 Other long term (current) drug therapy; Z20.822 Contact with and (suspected) exposure to COVID-19 ==

== ENCOUNTER 2021-05-16 18:50 | Emergency (ER) | payer OTHER, MEDICARE, MEDICAID | END 2021-05-16 20:18 | disposition home or self-care (01) | LOC: BURERS 18:50 | DX: S92.311A Displaced fracture of first metatarsal bone, right foot, initial encounter for closed fracture (principal); S92.321A Displaced fracture of second metatarsal bone, right foot, initial encounter for closed fracture; S92.331A Displaced fracture of third metatarsal bone, right foot, initial encounter for closed fracture; S92.341A Displaced fracture of fourth metatarsal bone, right foot, initial encounter for closed fracture; W01.0XXA Fall on same level from slipping, tripping and stumbling without subsequent striking against object, initial encounter; I25.2 Old myocardial infarction; I11.0 Hypertensive heart disease with heart failure; I50.9 Heart failure, unspecified; I25.10 Atherosclerotic heart disease of native coronary artery without angina pectoris; J44.9 Chronic obstructive pulmonary disease, unspecified; F17.210 Nicotine dependence, cigarettes, uncomplicated; Z79.82 Long term (current) use of aspirin; Z79.899 Other long term (current) drug therapy ==

== ENCOUNTER 2021-06-14 15:48 | Outpatient (CLI) | payer MEDICARE, MEDICAID | END 2021-06-14 15:49 | disposition home or self-care (01) | LOC: BURLABSP 15:48 | PROVIDERS: ATTEND Family Medicine | DX: I50.32 Chronic diastolic (congestive) heart failure (principal) | CPT/HCPCS: 83880 ==

== ENCOUNTER 2021-06-22 02:25 | Emergency (ER) | payer MEDICARE, MEDICAID ==
[2021-06-22] MEDS ORDERED: Magnesium 2 GM/50 ML BAG (IN WATER) ONE (02:48)
[2021-06-22] MEDS ORDERED: methylPREDNISolone Sod Succ/PF 125 MG/2 ML VIAL ONE (02:48)
[2021-06-22 03:17] LABS: #Basophils 0.1 thou/uL (0.0-0.2); #Eosinphils 0.3 thou/uL (0.0-0.7); #Lymphocytes 3.8 thou/uL (1.20-3.40); #Monocytes 0.8 thou/uL (0.11-0.59); #Neutrophils 7.3 thou/uL (1.40-6.50); %Basophils 1.2 % (0.0-1.0); %Eosinophils 2.6 % (0.0-10.0); %Monocytes 6.3 % (0.0-10.0); %Neutrophils 58.8 % (42.0-75.0); Hemoglobin 11.6 g/dL (12.0-16.0); Mean Corpuscular Hemoglobin 28.2 pg (27.0-31.0); Mean Corpuscular Volume 85.5 fL (78.0-98.0); Mean Platelet Volume 6.5 fL (7.4-10.4); Platelet Count 310 thou/uL (130-400); RBC Distribution Width 14.4 % (11.5-14.5); Red Blood Cell (RBC) Count 4.12 mill/uL (4.20-5.40); White Blood Cell (WBC) Count 12.3 thou/uL (4.8-10.8)
[2021-06-22] MEDS ORDERED: Albuterol Sulfate 1.25 MG/3 ML NEB ONE ×2 (03:18→03:45)
[2021-06-22 03:34] LABS: ALT (SGPT) 11 U/L (8-55); AST (SGOT) 12 U/L (5-34); Albumin 3.6 g/dL (3.4-4.8); Alkaline Phosphatase 91 U/L (40-110); Anion Gap 16 mmol/L (10-20); BUN (Urea Nitrogen) 23 mg/dL (9.8-20.1); Bilirubin, Total 0.2 mg/dL (0.2-1.2); Calc. Creatinine Clearance 0 mL/min (70-130); Calcium 9.2 mg/dL (7.8-10.44); Carbon Dioxide 27 mmol/L (23-31); Chloride 103 mmol/L (98-107); Globulin 2.5 g/dL (2.4-3.5); Glucose 120 mg/dL (80-115); Potassium 4.6 mmol/L (3.5-5.1); Protein, Total 6.1 g/dL (5.8-8.1); Sodium 141 mmol/L (136-145)
[2021-06-22] MEDS ORDERED: Ketorolac Tromethamine 30 MG/ML VIAL ONE (03:45)
== END 2021-06-22 04:30 | disposition home or self-care (01) ==
LOC: BURERS 02:25
DX: J44.1 Chronic obstructive pulmonary disease with (acute) exacerbation (principal); I45.10 Unspecified right bundle-branch block; I11.0 Hypertensive heart disease with heart failure; I50.9 Heart failure, unspecified; I25.10 Atherosclerotic heart disease of native coronary artery without angina pectoris; I25.2 Old myocardial infarction; F17.210 Nicotine dependence, cigarettes, uncomplicated; Z79.82 Long term (current) use of aspirin; Z79.899 Other long term (current) drug therapy
CPT/HCPCS: 36415; 71045; 80053; 83880; 84484; 85025; 93005; 94640; 94760; 96365; 96375; J1885; J2930; J3475; J7620

== ENCOUNTER 2021-07-09 10:50 | Emergency (ER) | payer MEDICARE, MEDICAID ==
[2021-07-09 11:27] LABS: #Basophils 0.1 thou/uL (0.0-0.2); #Eosinphils 0.1 thou/uL (0.0-0.7); #Lymphocytes 1.7 thou/uL (1.20-3.40); #Monocytes 0.3 thou/uL (0.11-0.59); %Eosinophils 1.6 % (0.0-10.0); %Lymphocytes 20.1 % (21.0-51.0); %Monocytes 4.1 % (0.0-10.0); %Neutrophils 73.2 % (42.0-75.0); Hemoglobin 11.2 g/dL (12.0-16.0); Mean Corpuscular HGB CONC 31.5 g/dL (32.0-36.0); Mean Corpuscular Hemoglobin 27.3 pg (27.0-31.0); Mean Corpuscular Volume 86.6 fL (78.0-98.0); Mean Platelet Volume 6.8 fL (7.4-10.4); Platelet Count 273 thou/uL (130-400); RBC Distribution Width 14.7 % (11.5-14.5); Red Blood Cell (RBC) Count 4.11 mill/uL (4.20-5.40); White Blood Cell (WBC) Count 8.2 thou/uL (4.8-10.8)
[2021-07-09 11:46] LABS: ALT (SGPT) 13 U/L (8-55); AST (SGOT) 34 U/L (5-34); Albumin 3.5 g/dL (3.4-4.8); Alkaline Phosphatase 115 U/L (40-110); Anion Gap 13 mmol/L (10-20); BUN (Urea Nitrogen) 14 mg/dL (9.8-20.1); Bilirubin, Total 0.4 mg/dL (0.2-1.2); Calc. Creatinine Clearance 0 mL/min (70-130); Calcium 8.7 mg/dL (7.8-10.44); Carbon Dioxide 26 mmol/L (23-31); Chloride 105 mmol/L (98-107); Globulin 2.6 g/dL (2.4-3.5); Glucose 162 mg/dL (80-115); Potassium 3.6 mmol/L (3.5-5.1); Protein, Total 6.1 g/dL (5.8-8.1); Sodium 140 mmol/L (136-145)
[2021-07-09] MEDS ORDERED: Albuterol Sulfate 2.5 mg/3 ml Neb ONE (12:33)
[2021-07-09 14:09] LABS: Lactic Acid 1.4 mmol/L (0.5-2.2)
== END 2021-07-09 14:20 | disposition home or self-care (01) ==
LOC: BURERS 10:50
DX: J44.1 Chronic obstructive pulmonary disease with (acute) exacerbation (principal); I45.10 Unspecified right bundle-branch block; I11.0 Hypertensive heart disease with heart failure; I50.9 Heart failure, unspecified; I25.10 Atherosclerotic heart disease of native coronary artery without angina pectoris; I25.2 Old myocardial infarction; F17.210 Nicotine dependence, cigarettes, uncomplicated
CPT/HCPCS: 36415; 71045; 80053; 83605; 83880; 84484; 85025; 87040; 93005; 94760; J7611; J7620

== ENCOUNTER 2021-08-13 13:03 | Outpatient (CLI) | payer MEDICARE, MEDICAID | END 2021-08-13 13:04 | disposition home or self-care (01) | LOC: BURCT 13:03 | PROVIDERS: ATTEND Family Medicine | DX: J44.9 Chronic obstructive pulmonary disease, unspecified (principal); Z98.890 Other specified postprocedural states | CPT/HCPCS: 71250 ==

== ENCOUNTER 2021-09-21 22:36 | Emergency (ER) | payer MEDICARE, MEDICAID ==
[2021-09-21] MEDS ORDERED: methylPREDNISolone Sod Succ/PF 125 MG/2 ML VIAL ONE (23:25)
[2021-09-21] MEDS ORDERED: Albuterol Sulfate 2.5 mg/0.5 ml Neb ONE ×2 (23:27→23:33)
[2021-09-21 23:40] LABS: #Basophils 0.1 thou/uL (0.0-0.2); #Eosinphils 0.1 thou/uL (0.0-0.7); #Lymphocytes 2.2 thou/uL (1.20-3.40); #Monocytes 0.6 thou/uL (0.11-0.59); #Neutrophils 8.6 thou/uL (1.40-6.50); %Eosinophils 0.7 % (0.0-10.0); %Lymphocytes 18.9 % (21.0-51.0); %Monocytes 5.1 % (0.0-10.0); %Neutrophils 74.2 % (42.0-75.0); Hemoglobin 11.1 g/dL (12.0-16.0); Mean Corpuscular HGB CONC 32.4 g/dL (32.0-36.0); Mean Corpuscular Hemoglobin 27.6 pg (27.0-31.0); Mean Platelet Volume 6.6 fL (7.4-10.4); Platelet Count 261 thou/uL (130-400); Red Blood Cell (RBC) Count 4.04 mill/uL (4.20-5.40); White Blood Cell (WBC) Count 11.6 thou/uL (4.8-10.8)
[2021-09-21] MEDS ORDERED: Doxycycline 100 MG CAP ONE (23:45)
[2021-09-21 23:48] LABS: ALT (SGPT) 13 U/L (8-55); AST (SGOT) 15 U/L (5-34); Albumin 3.8 g/dL (3.4-4.8); Alkaline Phosphatase 80 U/L (40-110); Anion Gap 19 mmol/L (10-20); BUN (Urea Nitrogen) 22 mg/dL (9.8-20.1); Bilirubin, Total 0.3 mg/dL (0.2-1.2); Calc. Creatinine Clearance 0 mL/min (70-130); Calcium 9.4 mg/dL (7.8-10.44); Carbon Dioxide 26 mmol/L (23-31); Chloride 103 mmol/L (98-107); Globulin 2.6 g/dL (2.4-3.5); Glucose 117 mg/dL (80-115); Potassium 4.5 mmol/L (3.5-5.1); Protein, Total 6.4 g/dL (5.8-8.1); Sodium 143 mmol/L (136-145)
[2021-09-22] MEDS ORDERED: Acetaminophen 500 MG TAB ONE (00:17)
== END 2021-09-22 00:40 | disposition home or self-care (01) ==
LOC: BURERS 22:36
DX: J44.1 Chronic obstructive pulmonary disease with (acute) exacerbation (principal); I11.0 Hypertensive heart disease with heart failure; I50.9 Heart failure, unspecified; I25.2 Old myocardial infarction; I25.10 Atherosclerotic heart disease of native coronary artery without angina pectoris; F17.210 Nicotine dependence, cigarettes, uncomplicated
CPT/HCPCS: 71045; 80053; 83880; 84484; 85025; 93005; 96374; J2930; J7611; J7620

== ENCOUNTER 2021-12-04 22:14 | Emergency (ER) | payer OTHER, MEDICAID ==
[2021-12-04] MEDS ORDERED: Morphine 4 MG/ML VIAL ONE (23:37)
[2021-12-04 23:56] LABS: ALT (SGPT) 12 U/L (8-55); AST (SGOT) 17 U/L (5-34); Albumin 3.7 g/dL (3.4-4.8); Alkaline Phosphatase 68 U/L (40-110); Anion Gap 11 mmol/L (10-20); BUN (Urea Nitrogen) 13 mg/dL (9.8-20.1); Bilirubin, Total 0.4 mg/dL (0.2-1.2); Calc. Creatinine Clearance 0 mL/min (70-130); Calcium 8.5 mg/dL (7.8-10.44); Carbon Dioxide 26 mmol/L (23-31); Chloride 107 mmol/L (98-107); Estimated GFR 71; Globulin 2.1 g/dL (2.4-3.5); Glucose 99 mg/dL (80-115); Lipase 19 U/L (8-78); Protein, Total 5.8 g/dL (5.8-8.1); Sodium 140 mmol/L (136-145)
[2021-12-04 23:59] LABS: #Basophils 0.1 thou/uL (0.0-0.2); #Lymphocytes 1.5 thou/uL (1.20-3.40); #Monocytes 0.3 thou/uL (0.11-0.59); #Neutrophils 6.2 thou/uL (1.40-6.50); %Basophils 1.2 % (0.0-1.0); %Eosinophils 0.4 % (0.0-10.0); %Lymphocytes 18.5 % (21.0-51.0); %Monocytes 4.1 % (0.0-10.0); %Neutrophils 75.9 % (42.0-75.0); Hemoglobin 10.5 g/dL (12.0-16.0); Mean Corpuscular HGB CONC 31.1 g/dL (32.0-36.0); Mean Corpuscular Hemoglobin 26.8 pg (27.0-31.0); Mean Corpuscular Volume 86.2 fL (78.0-98.0); Mean Platelet Volume 6.8 fL (7.4-10.4); Platelet Count 152 thou/uL (130-400); RBC Distribution Width 15.6 % (11.5-14.5); White Blood Cell (WBC) Count 8.1 thou/uL (4.8-10.8)
[2021-12-05 00:43] LABS: Bilirubin Negative (Negative); Blood, Urine Negative (Negative); Clarity Clear (Clear); Glucose, Urine (Dipstick) Negative (Negative); Ketone, Urine Negative (Negative); Leukocyte Negative (Negative); Nitrite Negative (Negative); Protein, Urine (Dipstick) Negative (Neg-Trace); Specific Gravity, Urine Greater/Equal 1.030 (1.005-1.030); Urobilinogen 0.2 mg/dL (Less than 2); pH, Urine 5.5 (5.0-9.0)
== END 2021-12-05 01:30 | disposition home or self-care (01) ==
LOC: BURERS 22:14
DX: J44.1 Chronic obstructive pulmonary disease with (acute) exacerbation (principal); R10.31 Right lower quadrant pain; I11.0 Hypertensive heart disease with heart failure; I50.9 Heart failure, unspecified; I25.2 Old myocardial infarction; I25.10 Atherosclerotic heart disease of native coronary artery without angina pectoris; F17.210 Nicotine dependence, cigarettes, uncomplicated; Z79.899 Other long term (current) drug therapy; Z79.82 Long term (current) use of aspirin
CPT/HCPCS: 71045; 74177; 80053; 81003; 83605; 83690; 84484; 85025; 93005; 96372; J2270; J7620

== ENCOUNTER 2021-12-07 03:23 | Emergency (ER) | payer OTHER ==
[2021-12-07] MEDS ORDERED: Doxycycline 100 MG CAP ONE (04:20)
== END 2021-12-07 06:32 | disposition home or self-care (01) ==
LOC: BURERS 03:23
DX: J44.1 Chronic obstructive pulmonary disease with (acute) exacerbation (principal); I25.2 Old myocardial infarction; I11.0 Hypertensive heart disease with heart failure; I50.9 Heart failure, unspecified; F17.210 Nicotine dependence, cigarettes, uncomplicated; Z79.899 Other long term (current) drug therapy
CPT/HCPCS: 71045; 94640; 94760; J7620

== ENCOUNTER 2021-12-30 14:21 | Outpatient (CLI) | payer OTHER ==
[2021-12-30 14:33] LABS: Bilirubin Negative (Negative); Blood, Urine Negative (Negative); Clarity Clear (Clear); Ketone, Urine Negative (Negative); Nitrite Positive (Negative); Protein, Urine (Dipstick) Trace mg/dL (Neg-Trace); Specific Gravity, Urine 1.025 (1.005-1.030)
[2021-12-30 14:37] LABS: Glucose, Urine (Dipstick) Unable to Interpret mg/dL (Negative); Leukocyte Negative (Negative)
[2021-12-30 14:50] LABS: Bacteria/HPF 1+ HPF (None Seen); RBC/HPF 0-3 HPF (0-3); Yeast-Budding Rare HPF (None Seen)
== END 2021-12-30 14:22 | disposition home or self-care (01) ==
LOC: BURLABSP 14:21
PROVIDERS: ATTEND Family Medicine
DX: N39.0 Urinary tract infection, site not specified (principal); R30.0 Dysuria
CPT/HCPCS: 81001; 87077; 87086

== ENCOUNTER 2022-01-21 01:56 | Observation (INO) | payer OTHER, MEDICAID ==
[2022-01-21] MEDS ORDERED: methylPREDNISolone Sod Succ/PF 125 MG/2 ML VIAL ONE (03:18)
[2022-01-21] MEDS ORDERED: Ipratropium Bromide 2.5 ml Neb ONE (03:18)
[2022-01-21] MEDS ORDERED: Albuterol Sulfate 2.5 mg/0.5 ml Neb ONE (03:18)
[2022-01-21] MEDS ORDERED: Doxycycline 100 MG CAP ONE (03:21)
[2022-01-21] MEDS ORDERED: Aspirin Chewable 81 MG TAB ONE (03:21)
[2022-01-21 03:38] LABS: #Basophils 0.1 thou/uL (0.0-0.2); #Lymphocytes 1.1 thou/uL (1.20-3.40); #Monocytes 0.5 thou/uL (0.11-0.59); #Neutrophils 10.5 thou/uL (1.40-6.50); %Basophils 0.7 % (0.0-1.0); %Eosinophils 0.3 % (0.0-10.0); %Lymphocytes 9.3 % (21.0-51.0); %Monocytes 3.9 % (0.0-10.0); %Neutrophils 85.9 % (42.0-75.0); Hemoglobin 10.8 g/dL (12.0-16.0); Mean Corpuscular HGB CONC 32.6 g/dL (32.0-36.0); Mean Corpuscular Hemoglobin 26.3 pg (27.0-31.0); Mean Corpuscular Volume 80.7 fL (78.0-98.0); Platelet Count 258 thou/uL (130-400); RBC Distribution Width 15.9 % (11.5-14.5); White Blood Cell (WBC) Count 12.3 thou/uL (4.8-10.8)
[2022-01-21 03:52] LABS: ALT (SGPT) 26 U/L (8-55); AST (SGOT) 39 U/L (5-34); Albumin 3.7 g/dL (3.4-4.8); Alkaline Phosphatase 80 U/L (40-110); Anion Gap 18 mmol/L (10-20); BUN (Urea Nitrogen) 17 mg/dL (9.8-20.1); Bilirubin, Total 0.3 mg/dL (0.2-1.2); Calc. Creatinine Clearance 0 mL/min (70-130); Calcium 8.9 mg/dL (7.8-10.44); Carbon Dioxide 26 mmol/L (23-31); Chloride 105 mmol/L (98-107); Estimated GFR 48; Globulin 2.3 g/dL (2.4-3.5); Glucose 125 mg/dL (80-115); Potassium 3.4 mmol/L (3.5-5.1); Sodium 146 mmol/L (136-145)
[2022-01-21] MEDS ORDERED: hydrOXYzine 25 MG TAB ONE (05:30)
[2022-01-21] MEDS ORDERED: Albuterol Sulfate 2.5 mg/3 ml Neb ONE (08:15)
[2022-01-21 09:06] VITALS: BMI 30.9
[2022-01-21 09:35] LABS: SARS-CoV-2 NAA Rapid Test Not Detected (NotDetected)
[2022-01-21] MEDS ORDERED: tiZANidine HCl 4 MG TAB PO PRN (10:41)
[2022-01-21] MEDS ORDERED: MECLIZINE HCL 12.5 MG PO PRN (10:41)
[2022-01-21] MEDS ORDERED: hydrOXYzine 10 MG TAB PO PRN (10:41)
[2022-01-21] MEDS ORDERED: Albuterol 200 PUFF (6.7GM INHALER) INH PRN (10:41)
[2022-01-21] MEDS ORDERED: Benzonatate 100 MG CAP PO PRN (10:41)
[2022-01-21] MEDS ORDERED: Ondansetron ODT 4 MG TAB PO PRN (11:28)
[2022-01-21] MEDS: Acetaminophen/Codeine 30-300mg Tablet PO PRN ×2 (11:33→18:09)
[2022-01-21] MEDS ORDERED: Artificial Tear Sol 15 ML BOT EA EYE PRN (12:39)
[2022-01-21] MEDS: Ipratropium Bromide 2.5 ml Neb NEB SCH ×2 (12:46→17:55)
[2022-01-21] MEDS: Pregabalin 50 MG CAP PO SCH ×2 (14:09→21:56)
[2022-01-21] MEDS: methylPREDNISolone Sod Succ 40 MG VIAL IVP SCH ×2 (14:10→21:55)
[2022-01-21] MEDS ORDERED: Furosemide 40 MG TAB PO SCH (21:00)
[2022-01-21] MEDS: Mometasone/Formoterol 200/5 60 PUFF INH SCH (21:50)
[2022-01-21] MEDS: Zolpidem Tartrate 5 MG TAB PO PRN (21:56)
[2022-01-21] MEDS: Rosuvastatin 10 MG TAB PO SCH (21:56)
[2022-01-22] MEDS: Ipratropium Bromide 2.5 ml Neb NEB SCH ×5 (00:21→23:21)
[2022-01-22] MEDS ORDERED: Furosemide 40 MG TAB ONE (05:31)
[2022-01-22] MEDS: methylPREDNISolone Sod Succ 40 MG VIAL IVP SCH ×3 (05:41→21:02)
[2022-01-22] MEDS: Furosemide 40 MG TAB PO SCH ×2 (05:42→13:38)
[2022-01-22] MEDS ORDERED: Non-Formulary Item 1 EACH (Tiotropium [Spiriva Handihaler] 18 MCG Box) INH SCH (09:00)
[2022-01-22] MEDS: Pregabalin 50 MG CAP PO SCH ×3 (09:05→20:45)
[2022-01-22] MEDS: Magnesium Oxide 400 MG TAB PO SCH (09:06)
[2022-01-22] MEDS: Clopidogrel Bisulfate 75 MG TAB PO SCH (09:06)
[2022-01-22] MEDS: Potassium Chloride 20 MEQ TAB PO SCH (09:06)
[2022-01-22] MEDS: Enoxaparin Sodium 40 MG/0.4 ML SYRINGE SC SCH (09:06)
[2022-01-22] MEDS: Mometasone/Formoterol 200/5 60 PUFF INH SCH ×2 (09:07→20:49)
[2022-01-22] MEDS: Fluticasone Propionate Nasal Spray 16 gm Bottle NASAL SCH (09:08)
[2022-01-22] MEDS: VARENICLINE TARTRATE 0.5 MG PO SCH (09:08)
[2022-01-22] MEDS: Nicotine 21 MG PATCH TD SCH (09:08)
[2022-01-22] MEDS: Acetaminophen/Codeine 30-300mg Tablet PO PRN ×2 (09:23→17:35)
[2022-01-22] MEDS: Rosuvastatin 10 MG TAB PO SCH (20:46)
[2022-01-22] MEDS: Zolpidem Tartrate 5 MG TAB PO PRN (23:18)
[2022-01-23] MEDS: Acetaminophen/Codeine 30-300mg Tablet PO PRN (01:57)
[2022-01-23] MEDS: methylPREDNISolone Sod Succ 40 MG VIAL IVP SCH (05:09)
[2022-01-23] MEDS: Furosemide 40 MG TAB PO SCH (05:09)
[2022-01-23] MEDS: Ipratropium Bromide 2.5 ml Neb NEB SCH (05:11)
[2022-01-23] MEDS: Nicotine 21 MG PATCH TD SCH (09:28)
[2022-01-23] MEDS: Enoxaparin Sodium 40 MG/0.4 ML SYRINGE SC SCH (09:28)
[2022-01-23] MEDS: Magnesium Oxide 400 MG TAB PO SCH (09:29)
[2022-01-23] MEDS: Clopidogrel Bisulfate 75 MG TAB PO SCH (09:29)
[2022-01-23] MEDS: Pregabalin 50 MG CAP PO SCH (09:30)
[2022-01-23] MEDS: Potassium Chloride 20 MEQ TAB PO SCH (09:31)
[2022-01-23] MEDS: Mometasone/Formoterol 200/5 60 PUFF INH SCH (09:32)
[2022-01-23 10:39] VITALS: BP 123/78; TEMP 98.6
[2022-01-23] MEDS: Fluticasone Propionate Nasal Spray 16 gm Bottle NASAL SCH (11:08)
[2022-01-23] MEDS: VARENICLINE TARTRATE 0.5 MG PO SCH (11:09)
== END 2022-01-23 11:35 | disposition home or self-care (01) ==
LOC: BURERS 01:56 → BURMED 07:00
PROVIDERS: ADMIT Family Medicine; ATTEND Family Medicine
DX: J44.1 Chronic obstructive pulmonary disease with (acute) exacerbation (principal); I11.0 Hypertensive heart disease with heart failure; I50.32 Chronic diastolic (congestive) heart failure; E78.5 Hyperlipidemia, unspecified; I25.10 Atherosclerotic heart disease of native coronary artery without angina pectoris; F17.210 Nicotine dependence, cigarettes, uncomplicated; R53.1 Weakness; G89.29 Other chronic pain; M54.9 Dorsalgia, unspecified; K21.9 Gastro-esophageal reflux disease without esophagitis; Z79.02 Long term (current) use of antithrombotics/antiplatelets; Z79.52 Long term (current) use of systemic steroids; Z79.899 Other long term (current) drug therapy; Z88.0 Allergy status to penicillin; Z88.2 Allergy status to sulfonamides; Z88.5 Allergy status to narcotic agent; Z88.8 Allergy status to other drugs, medicaments and biological substances; Z95.1 Presence of aortocoronary bypass graft; Z99.81 Dependence on supplemental oxygen; Z20.822 Contact with and (suspected) exposure to COVID-19
CPT/HCPCS: 71045; 80053; 84484; 85025; 93005; 94664; 96374; J1650; J2920; J2930; J7611; Q0162

== ENCOUNTER 2022-03-03 21:39 | Emergency (ER) | payer OTHER ==
[2022-03-03 22:42] LABS: #Basophils 0.1 thou/uL (0.0-0.2); #Lymphocytes 0.7 thou/uL (1.20-3.40); #Monocytes 0.1 thou/uL (0.11-0.59); #Neutrophils 9.2 thou/uL (1.40-6.50); %Basophils 0.6 % (0.0-1.0); %Eosinophils 0.1 % (0.0-10.0); %Lymphocytes 7.3 % (21.0-51.0); %Monocytes 0.7 % (0.0-10.0); %Neutrophils 91.3 % (42.0-75.0); Hemoglobin 11.4 g/dL (12.0-16.0); Mean Corpuscular HGB CONC 31.5 g/dL (32.0-36.0); Mean Corpuscular Hemoglobin 26.5 pg (27.0-31.0); Mean Corpuscular Volume 84.3 fL (78.0-98.0); Mean Platelet Volume 6.6 fL (7.4-10.4); Platelet Count 300 thou/uL (130-400); RBC Distribution Width 16.5 % (11.5-14.5); Red Blood Cell (RBC) Count 4.28 mill/uL (4.20-5.40); White Blood Cell (WBC) Count 10.1 thou/uL (4.8-10.8)
[2022-03-03] MEDS ORDERED: Ketorolac Tromethamine 30 MG/ML VIAL ONE (22:46)
[2022-03-03 22:53] LABS: ALT (SGPT) 12 U/L (8-55); AST (SGOT) 13 U/L (5-34); Alkaline Phosphatase 98 U/L (40-110); Anion Gap 18 mmol/L (10-20); BUN (Urea Nitrogen) 15 mg/dL (9.8-20.1); Bilirubin, Total 0.3 mg/dL (0.2-1.2); Calc. Creatinine Clearance 0 mL/min (70-130); Calcium 9.2 mg/dL (7.8-10.44); Carbon Dioxide 24 mmol/L (23-31); Chloride 107 mmol/L (98-107); Estimated GFR 48; Globulin 2.4 g/dL (2.4-3.5); Glucose 222 mg/dL (80-115); Lipase 23 U/L (8-78); Potassium 3.9 mmol/L (3.5-5.1); Protein, Total 6.4 g/dL (5.8-8.1); Sodium 145 mmol/L (136-145)
== END 2022-03-03 23:35 | disposition home or self-care (01) ==
LOC: BURERS 21:39
DX: J44.1 Chronic obstructive pulmonary disease with (acute) exacerbation (principal); R07.81 Pleurodynia; I45.10 Unspecified right bundle-branch block; I11.0 Hypertensive heart disease with heart failure; I50.9 Heart failure, unspecified; I25.2 Old myocardial infarction; I25.10 Atherosclerotic heart disease of native coronary artery without angina pectoris; F17.210 Nicotine dependence, cigarettes, uncomplicated; Z79.82 Long term (current) use of aspirin; Z79.899 Other long term (current) drug therapy
CPT/HCPCS: 71045; 80053; 83690; 83880; 84484; 85025; 93005; 94640; 96374; J1885; J7620

== ENCOUNTER 2022-03-04 15:17 | Outpatient (CLI) | payer OTHER | END 2022-03-04 15:18 | disposition home or self-care (01) | LOC: BURCT 15:17 | PROVIDERS: ATTEND Internal Medicine Pulmonary Disease | DX: R07.9 Chest pain, unspecified (principal); J43.9 Emphysema, unspecified; I25.10 Atherosclerotic heart disease of native coronary artery without angina pectoris | CPT/HCPCS: 71250 ==

== ENCOUNTER 2022-03-25 11:19 | Emergency (ER) | payer OTHER, MEDICAID ==
[2022-03-25 11:49] LABS: #Basophils 0.1 thou/uL (0.0-0.2); #Eosinphils 0.1 thou/uL (0.0-0.7); #Lymphocytes 2.6 thou/uL (1.20-3.40); #Monocytes 0.5 thou/uL (0.11-0.59); #Neutrophils 6.1 thou/uL (1.40-6.50); %Eosinophils 1.4 % (0.0-10.0); %Lymphocytes 27.9 % (21.0-51.0); %Monocytes 4.8 % (0.0-10.0); Mean Corpuscular HGB CONC 31.5 g/dL (32.0-36.0); Mean Corpuscular Hemoglobin 27.1 pg (27.0-31.0); Mean Corpuscular Volume 85.8 fl (78.0-98.0); Mean Platelet Volume 6.6 fL (7.4-10.4); Platelet Count 292 thou/uL (130-400); RBC Distribution Width 15.8 % (11.5-14.5); White Blood Cell (WBC) Count 9.5 thou/uL (4.8-10.8)
[2022-03-25 12:05] LABS: ALT (SGPT) 20 U/L (8-55); AST (SGOT) 28 U/L (5-34); Albumin 3.3 g/dL (3.4-4.8); Alkaline Phosphatase 87 U/L (40-110); Anion Gap 13 mmol/L (10-20); BUN (Urea Nitrogen) 15 mg/dL (9.8-20.1); Bilirubin, Total 0.3 mg/dL (0.2-1.2); Calc. Creatinine Clearance 0 mL/min (70-130); Calcium 8.7 mg/dL (7.8-10.44); Carbon Dioxide 26 mmol/L (23-31); Chloride 107 mmol/L (98-107); Estimated GFR 52; Globulin 2.1 g/dL (2.4-3.5); Glucose 178 mg/dL (80-115); Magnesium 2.1 mg/dL (1.6-2.6); Potassium 3.3 mmol/L (3.5-5.1); Protein, Total 5.4 g/dL (5.8-8.1); Sodium 143 mmol/L (136-145)
== END 2022-03-25 12:40 | disposition home or self-care (01) ==
LOC: BURERS 11:19
DX: J44.1 Chronic obstructive pulmonary disease with (acute) exacerbation (principal); I11.0 Hypertensive heart disease with heart failure; I50.9 Heart failure, unspecified; I25.10 Atherosclerotic heart disease of native coronary artery without angina pectoris; F17.210 Nicotine dependence, cigarettes, uncomplicated; E87.6 Hypokalemia; Z95.1 Presence of aortocoronary bypass graft
CPT/HCPCS: 71045; 80053; 83735; 83880; 84484; 85025; 87804; 93005; J7620

== ENCOUNTER 2022-03-27 02:24 | Emergency (ER) | payer OTHER, MEDICAID ==
[2022-03-27 03:29] LABS: #Monocytes 0.5 thou/uL (0.11-0.59); %Basophils 0.1 % (0.0-1.0); %Eosinophils 0.1 % (0.0-10.0); %Lymphocytes 8.8 % (21.0-51.0); %Monocytes 4.5 % (0.0-10.0); %Neutrophils 86.5 % (42.0-75.0); Hemoglobin 9.8 g/dL (12.0-16.0); Mean Corpuscular HGB CONC 31.1 g/dL (32.0-36.0); Mean Corpuscular Hemoglobin 27.1 pg (27.0-31.0); Mean Corpuscular Volume 87.1 fl (78.0-98.0); Mean Platelet Volume 6.8 fL (7.4-10.4); Platelet Count 295 thou/uL (130-400); RBC Distribution Width 16.7 % (11.5-14.5); Red Blood Cell (RBC) Count 3.62 mill/uL (4.20-5.40); White Blood Cell (WBC) Count 11.6 thou/uL (4.8-10.8)
[2022-03-27 03:44] LABS: ALT (SGPT) 25 U/L (8-55); AST (SGOT) 29 U/L (5-34); Albumin 3.7 g/dL (3.4-4.8); Alkaline Phosphatase 101 U/L (40-110); Anion Gap 13 mmol/L (10-20); BUN (Urea Nitrogen) 13 mg/dL (9.8-20.1); Bilirubin, Total 0.2 mg/dL (0.2-1.2); Calc. Creatinine Clearance 0 mL/min (70-130); Calcium 9.1 mg/dL (7.8-10.44); Carbon Dioxide 25 mmol/L (23-31); Chloride 112 mmol/L (98-107); Estimated GFR 49; Globulin 2.2 g/dL (2.4-3.5); Glucose 135 mg/dL (80-115); Potassium 4.2 mmol/L (3.5-5.1); Protein, Total 5.9 g/dL (5.8-8.1); Sodium 146 mmol/L (136-145)
[2022-03-27 04:04] LABS: CKMB 5.3 ng/mL (0-6.6)
[2022-03-27] MEDS ORDERED: Magnesium 2 GM/50 ML BAG (IN WATER) ONE (04:26)
[2022-03-27] MEDS ORDERED: methylPREDNISolone Sod Succ/PF 125 MG/2 ML VIAL ONE (04:26)
[2022-03-27] MEDS ORDERED: Albuterol Sulfate 2.5 mg/0.5 ml Neb ONE (04:27)
[2022-03-27] MEDS ORDERED: Furosemide 40 MG/4 ML VIAL ONE (07:01)
[2022-03-27] MEDS ORDERED: Aspirin Chewable 81 MG TAB ONE (07:01)
== END 2022-03-27 08:38 | disposition short-term general hospital (02) ==
LOC: BURERS 02:24
DX: J44.1 Chronic obstructive pulmonary disease with (acute) exacerbation (principal); I10 Essential (primary) hypertension; I50.9 Heart failure, unspecified; I25.10 Atherosclerotic heart disease of native coronary artery without angina pectoris; E78.5 Hyperlipidemia, unspecified; F17.210 Nicotine dependence, cigarettes, uncomplicated; Z79.899 Other long term (current) drug therapy; Z79.82 Long term (current) use of aspirin; R77.8 Other specified abnormalities of plasma proteins
CPT/HCPCS: 36415; 71045; 80053; 82553; 83880; 84484; 85025; 93005; 96365; 96366; 96367; 96375; J1940; J1956; J2930; J3475; J7611

== ENCOUNTER 2022-04-19 04:08 | Emergency (ER) | payer OTHER, MEDICAID ==
[2022-04-19 04:54] LABS: #Basophils 0.1 thou/uL (0.0-0.2); #Eosinphils 0.1 thou/uL (0.0-0.7); #Lymphocytes 2.2 thou/uL (1.20-3.40); #Monocytes 0.7 thou/uL (0.11-0.59); #Neutrophils 11.1 thou/uL (1.40-6.50); %Basophils 0.8 % (0.0-1.0); %Eosinophils 0.5 % (0.0-10.0); %Lymphocytes 15.3 % (21.0-51.0); %Neutrophils 78.4 % (42.0-75.0); Mean Corpuscular HGB CONC 32.2 g/dL (32.0-36.0); Mean Corpuscular Hemoglobin 27.3 pg (27.0-31.0); Mean Corpuscular Volume 84.7 fl (78.0-98.0); Mean Platelet Volume 6.6 fL (7.4-10.4); Platelet Count 282 10x3/uL (130-400); RBC Distribution Width 15.9 % (11.5-14.5); Red Blood Cell (RBC) Count 3.66 mill/uL (4.20-5.40); White Blood Cell (WBC) Count 14.2 10x3/uL (4.8-10.8)
[2022-04-19 05:17] LABS: ALT (SGPT) 31 U/L (8-55); AST (SGOT) 36 U/L (5-34); Albumin 3.9 g/dL (3.4-4.8); Alkaline Phosphatase 111 U/L (40-110); Anion Gap 16 mmol/L (10-20); BUN (Urea Nitrogen) 17 mg/dL (9.8-20.1); Bilirubin, Total 0.3 mg/dL (0.2-1.2); Calc. Creatinine Clearance 0 mL/min (70-130); Calcium 9.2 mg/dL (7.8-10.44); Carbon Dioxide 26 mmol/L (23-31); Chloride 104 mmol/L (98-107); Estimated GFR 28; Glucose 128 mg/dL (80-115); Lipase 19 U/L (8-78); Potassium 4.4 mmol/L (3.5-5.1); Protein, Total 5.9 g/dL (5.8-8.1); Sodium 142 mmol/L (136-145)
[2022-04-19] MEDS ORDERED: Ketorolac Tromethamine 30 MG/ML VIAL ONE (05:20)
[2022-04-19] MEDS ORDERED: Fentanyl 100 MCG/2 ML VIAL ONE (05:20)
[2022-04-19] MEDS ORDERED: Aspirin Chewable 81 MG TAB ONE (06:23)
[2022-04-19] MEDS ORDERED: Enoxaparin Sodium 100 MG/ML SYRINGE ONE (06:33)
[2022-04-19] MEDS ORDERED: methylPREDNISolone Sod Succ/PF 125 MG/2 ML VIAL ONE (06:39)
== END 2022-04-19 09:15 | disposition short-term general hospital (02) ==
LOC: BURERS 04:08
DX: J44.9 Chronic obstructive pulmonary disease, unspecified (principal); N28.9 Disorder of kidney and ureter, unspecified; R79.1 Abnormal coagulation profile; I11.0 Hypertensive heart disease with heart failure; I50.9 Heart failure, unspecified; I25.10 Atherosclerotic heart disease of native coronary artery without angina pectoris; E78.5 Hyperlipidemia, unspecified; I10 Essential (primary) hypertension; K21.9 Gastro-esophageal reflux disease without esophagitis; F17.210 Nicotine dependence, cigarettes, uncomplicated
CPT/HCPCS: 71045; 80053; 83690; 83880; 84484; 85025; 85379; 93005; 94760; 96372; 96374; 96375; J1650; J1885; J2930; J3010

== ENCOUNTER 2022-04-26 06:56 | Observation (INO) | payer OTHER, MEDICAID ==
[2022-04-26] MEDS ORDERED: methylPREDNISolone Sod Succ/PF 125 MG/2 ML VIAL ONE (08:37)
[2022-04-26] MEDS ORDERED: Morphine 2 MG/ML VIAL ONE ×2 (08:37→13:03)
[2022-04-26] MEDS ORDERED: Magnesium 2 GM/50 ML BAG (IN WATER) ONE (08:37)
[2022-04-26] MEDS ORDERED: Albuterol Sulfate 2.5 mg/3 ml Neb ONE (08:37)
[2022-04-26 09:08] LABS: #Basophils 0.1 thou/uL (0.0-0.2); #Lymphocytes 0.8 thou/uL (1.20-3.40); #Monocytes 0.4 thou/uL (0.11-0.59); #Neutrophils 10.1 thou/uL (1.40-6.50); %Basophils 0.5 % (0.0-1.0); %Eosinophils 0.3 % (0.0-10.0); %Monocytes 3.7 % (0.0-10.0); %Neutrophils 88.5 % (42.0-75.0); Mean Corpuscular HGB CONC 31.3 g/dL (32.0-36.0); Mean Corpuscular Hemoglobin 26.7 pg (27.0-31.0); Mean Corpuscular Volume 85.3 fl (78.0-98.0); Mean Platelet Volume 7.3 fL (7.4-10.4); Platelet Count 246 10x3/uL (130-400); RBC Distribution Width 15.6 % (11.5-14.5); Red Blood Cell (RBC) Count 3.75 mill/uL (4.20-5.40); White Blood Cell (WBC) Count 11.4 10x3/uL (4.8-10.8)
[2022-04-26 09:25] LABS: ALT (SGPT) 49 U/L (8-55); AST (SGOT) 53 U/L (5-34); Albumin 3.6 g/dL (3.4-4.8); Alkaline Phosphatase 161 U/L (40-110); Anion Gap 14 mmol/L (10-20); BUN (Urea Nitrogen) 18 mg/dL (9.8-20.1); Bilirubin, Total 0.5 mg/dL (0.2-1.2); Calc. Creatinine Clearance 0 mL/min (70-130); Carbon Dioxide 25 mmol/L (23-31); Chloride 108 mmol/L (98-107); Estimated GFR 57; Glucose 144 mg/dL (80-115); Potassium 3.6 mmol/L (3.5-5.1); Protein, Total 5.6 g/dL (5.8-8.1); Sodium 143 mmol/L (136-145)
[2022-04-26] MEDS ORDERED: Doxycycline 100 MG CAP ONE (10:19)
[2022-04-26 12:58] LABS: SARS-CoV-2 NAA Rapid Test Not Detected (NotDetected)
[2022-04-26] MEDS ORDERED: Ondansetron ODT 4 MG TAB SL PRN (14:30)
[2022-04-26] MEDS ORDERED: Ondansetron PF 4 MG/2 ML Vial IVP PRN (14:30)
[2022-04-26] MEDS ORDERED: Prevnar 13-Val Conj/PF 0.5 ML SYRINGE IM ONE (15:15)
[2022-04-26] MEDS ORDERED: FLU VACC QS2022-23(6MOS UP)/PF 60 MCG/0.5 ML SYRINGE IM ONE (15:15)
[2022-04-26] MEDS ORDERED: Benzonatate 100 MG CAP PO PRN (15:59)
[2022-04-26] MEDS ORDERED: Albuterol 200 PUFF (6.7GM INHALER) INH PRN (15:59)
[2022-04-26] MEDS ORDERED: Nicotine 14 MG PATCH TD SCH (16:00)
[2022-04-26] MEDS ORDERED: Zolpidem Tartrate 5 MG TAB PO PRN (16:17)
[2022-04-26] MEDS ORDERED: Albuterol Sulfate 2.5 mg/3 ml Neb NEB PRN (16:33)
[2022-04-26] MEDS: Ipratropium Bromide 2.5 ml Neb NEB SCH ×2 (17:59→23:43)
[2022-04-26] MEDS: Acetaminophen/Codeine 30-300mg Tablet PO PRN (18:53)
[2022-04-26] MEDS ORDERED: Furosemide 40 MG TAB PO SCH (21:00)
[2022-04-26] MEDS ORDERED: Doxycycline 100 MG CAP PO SCH (21:00)
[2022-04-26] MEDS: tiZANidine HCl 4 MG TAB PO SCH (21:20)
[2022-04-26] MEDS: Pregabalin 50 MG CAP PO SCH (21:20)
[2022-04-26] MEDS: cloNIDine 0.1 MG TAB PO SCH (21:20)
[2022-04-26] MEDS: Mometasone/Formoterol 200/5 60 PUFF INH SCH (21:21)
[2022-04-26] MEDS: hydrOXYzine 25 MG TAB PO PRN (23:50)
[2022-04-27 00:42] VITALS: BMI 30.1
[2022-04-27] MEDS: Furosemide 40 MG TAB PO SCH ×2 (05:45→14:00)
[2022-04-27] MEDS: Ipratropium Bromide 2.5 ml Neb NEB SCH ×2 (05:45→13:19)
[2022-04-27] MEDS ORDERED: predniSONE 10 MG TAB PO SCH (08:00)
[2022-04-27] MEDS ORDERED: Potassium Chloride 20 MEQ TAB PO SCH (08:00)
[2022-04-27] MEDS ORDERED: Spironolactone 25 MG TAB PO SCH (08:00)
[2022-04-27 08:07] VITALS: BP 157/78
[2022-04-27 08:15] LABS: Bilirubin Negative (Negative); Blood, Urine Trace (Negative); Clarity Clear (Clear); Glucose, Urine (Dipstick) Negative (Negative); Ketone, Urine Negative (Negative); Leukocyte Negative (Negative); Nitrite Negative (Negative); Protein, Urine (Dipstick) Negative (Neg-Trace); Urobilinogen 0.2 mg/dL (Less than 2)
[2022-04-27] MEDS: Pregabalin 50 MG CAP PO SCH (08:15)
[2022-04-27] MEDS: tiZANidine HCl 4 MG TAB PO SCH (08:17)
[2022-04-27] MEDS: cloNIDine 0.1 MG TAB PO SCH (08:17)
[2022-04-27 08:24] LABS: Bacteria/HPF None Seen HPF (None Seen); RBC/HPF 0-3 HPF (0-3); Squamous Epithelial 0-3 HPF (0-3); WBC/HPF None Seen HPF (0-3)
[2022-04-27] MEDS: Acetaminophen/Codeine 30-300mg Tablet PO PRN (08:31)
[2022-04-27] MEDS: Mometasone/Formoterol 200/5 60 PUFF INH SCH (08:33)
[2022-04-27] MEDS ORDERED: DULoxetine 30 MG CAP PO SCH (09:00)
[2022-04-27] MEDS ORDERED: Isosorbide Mononitrate 20 MG TAB PO SCH (09:00)
[2022-04-27] MEDS ORDERED: CLONIDINE 0.2 MG PO SCH (09:00)
[2022-04-27] MEDS ORDERED: Clopidogrel Bisulfate 75 MG TAB PO SCH (09:00)
[2022-04-27] MEDS ORDERED: Magnesium Oxide 400 MG TAB PO SCH (09:00)
[2022-04-27] MEDS ORDERED: Sertraline 100 MG TAB PO SCH (09:00)
[2022-04-27] MEDS ORDERED: Rosuvastatin 10 MG TAB PO SCH (09:00)
[2022-04-27 11:23] VITALS: TEMP 97.8
[2022-04-27] MEDS: hydrOXYzine 25 MG TAB PO PRN (13:29)
== END 2022-04-27 15:10 | disposition home or self-care (01) ==
LOC: BURERS 06:56 → BURMED 10:53
PROVIDERS: ADMIT Family Medicine; ATTEND Family Medicine
DX: J44.1 Chronic obstructive pulmonary disease with (acute) exacerbation (principal); F17.210 Nicotine dependence, cigarettes, uncomplicated; G89.4 Chronic pain syndrome; E78.5 Hyperlipidemia, unspecified; I13.0 Hypertensive heart and chronic kidney disease with heart failure and stage 1 through stage 4 chronic kidney disease, or unspecified chronic kidney disease; N18.31 Chronic kidney disease, stage 3a; I50.32 Chronic diastolic (congestive) heart failure; D63.1 Anemia in chronic kidney disease; I25.708 Atherosclerosis of coronary artery bypass graft(s), unspecified, with other forms of angina pectoris; H54.62 Unqualified visual loss, left eye, normal vision right eye; Z79.02 Long term (current) use of antithrombotics/antiplatelets; Z79.52 Long term (current) use of systemic steroids; Z79.899 Other long term (current) drug therapy; Z88.0 Allergy status to penicillin; Z88.2 Allergy status to sulfonamides; Z88.5 Allergy status to narcotic agent; Z88.8 Allergy status to other drugs, medicaments and biological substances; Z95.1 Presence of aortocoronary bypass graft; Z99.81 Dependence on supplemental oxygen; Z20.822 Contact with and (suspected) exposure to COVID-19
CPT/HCPCS: 36415; 80053; 81001; 83880; 84484; 85025; 90471; 90686; 94640; 94664; 96365; 96375; 96376; G0008; G0378; J2270; J2930; J3475; J7512; J7611; J7620; U0002

== ENCOUNTER 2022-05-20 17:20 | Inpatient (IN) | payer OTHER, MEDICAID ==
[2022-05-20 20:30] VITALS: BMI 30.9
[2022-05-20] MEDS ORDERED: Albuterol 200 PUFF (6.7GM INHALER) INH PRN (20:33)
[2022-05-20] MEDS: cloNIDine 0.1 MG TAB PO SCH (21:41)
[2022-05-20] MEDS: Ondansetron ODT 4 MG TAB PO PRN (21:42)
[2022-05-20] MEDS: Zolpidem Tartrate 5 MG TAB PO PRN (21:42)
[2022-05-20] MEDS: Multivit, Therapeutic 1 TAB PO SCH (21:42)
[2022-05-20] MEDS: guaiFENesin ER 600 MG TAB PO SCH (21:42)
[2022-05-20] MEDS: Furosemide 40 MG TAB PO SCH (21:43)
[2022-05-20] MEDS: tiZANidine HCl 4 MG TAB PO PRN (21:43)
[2022-05-20] MEDS: predniSONE 20 MG TAB PO SCH (21:43)
[2022-05-20] MEDS: Nicotine 14 MG PATCH TD SCH (21:54)
[2022-05-20] MEDS: Acetaminophen/Codeine 30-300mg Tablet PO SCH ×2 (23:00→23:43)
[2022-05-20] MEDS: Ipratropium Bromide 2.5 ml Neb NEB SCH (23:01)
[2022-05-20] MEDS: Benzonatate 100 MG CAP PO PRN (23:34)
[2022-05-20] MEDS: Ipratropium/Albuterol 3 ML NEB NEB PRN (23:43)
[2022-05-21] MEDS: Ipratropium Bromide 2.5 ml Neb NEB SCH ×5 (00:35→23:54)
[2022-05-21] MEDS: Acetaminophen/Codeine 30-300mg Tablet PO SCH ×4 (06:27→23:53)
[2022-05-21] MEDS: Mometasone/Formoterol 200/5 60 PUFF INH SCH ×2 (06:29→20:17)
[2022-05-21] MEDS: Ipratropium/Albuterol 3 ML NEB NEB PRN (06:30)
[2022-05-21] MEDS ORDERED: Rosuvastatin 10 MG TAB PO SCH (09:00)
[2022-05-21] MEDS: hydrOXYzine 10 MG TAB PO PRN ×2 (09:50→23:53)
[2022-05-21] MEDS: Pregabalin 50 MG CAP PO PRN ×2 (09:51→20:14)
[2022-05-21] MEDS: Sertraline 100 MG TAB PO SCH (09:52)
[2022-05-21] MEDS: Azithromycin 250 MG TAB PO SCH (09:52)
[2022-05-21] MEDS: Zinc Sulfate 220 MG CAP PO SCH (09:53)
[2022-05-21] MEDS: Ascorbic Acid 500 mg Chewable Tablet PO SCH (09:54)
[2022-05-21] MEDS: predniSONE 20 MG TAB PO SCH ×2 (09:54→20:14)
[2022-05-21] MEDS: cloNIDine 0.1 MG TAB PO SCH ×2 (09:55→20:13)
[2022-05-21] MEDS: Clopidogrel Bisulfate 75 MG TAB PO SCH (09:55)
[2022-05-21] MEDS: Magnesium Oxide 400 MG TAB PO SCH (09:56)
[2022-05-21] MEDS: Potassium Chloride 20 MEQ TAB PO SCH (09:56)
[2022-05-21] MEDS: Spironolactone 25 MG TAB PO SCH (09:56)
[2022-05-21] MEDS: Furosemide 40 MG TAB PO SCH ×2 (09:56→20:14)
[2022-05-21] MEDS: guaiFENesin ER 600 MG TAB PO SCH ×2 (09:57→20:14)
[2022-05-21] MEDS: Fluticasone Propionate Nasal Spray 16 gm Bottle NASAL SCH (09:58)
[2022-05-21] MEDS: Ondansetron ODT 4 MG TAB PO PRN (12:39)
[2022-05-21] MEDS: Zolpidem Tartrate 5 MG TAB PO PRN (20:13)
[2022-05-21] MEDS: Multivit, Therapeutic 1 TAB PO SCH (20:14)
[2022-05-21] MEDS: tiZANidine HCl 4 MG TAB PO PRN (20:14)
[2022-05-21] MEDS: Rosuvastatin 10 MG TAB PO SCH (20:16)
[2022-05-21] MEDS: Nicotine 14 MG PATCH TD SCH (21:37)
[2022-05-22] MEDS: Polyethylene Glycol 3350 17 GM Packet PO PRN (04:35)
[2022-05-22] MEDS: tiZANidine HCl 4 MG TAB PO PRN ×2 (04:35→20:25)
[2022-05-22] MEDS: Ipratropium Bromide 2.5 ml Neb NEB SCH ×3 (06:13→17:41)
[2022-05-22] MEDS: Acetaminophen/Codeine 30-300mg Tablet PO SCH ×3 (06:15→17:39)
[2022-05-22] MEDS: Furosemide 40 MG TAB PO SCH ×2 (06:16→12:36)
[2022-05-22] MEDS: Mometasone/Formoterol 200/5 60 PUFF INH SCH ×2 (06:17→18:25)
[2022-05-22] MEDS: cloNIDine 0.1 MG TAB PO SCH ×2 (08:58→20:25)
[2022-05-22] MEDS: Potassium Chloride 20 MEQ TAB PO SCH (09:00)
[2022-05-22] MEDS: Zinc Sulfate 220 MG CAP PO SCH (09:00)
[2022-05-22] MEDS: Magnesium Oxide 400 MG TAB PO SCH (09:01)
[2022-05-22] MEDS: predniSONE 20 MG TAB PO SCH ×2 (09:01→20:26)
[2022-05-22] MEDS: Spironolactone 25 MG TAB PO SCH (09:01)
[2022-05-22] MEDS: Clopidogrel Bisulfate 75 MG TAB PO SCH (09:01)
[2022-05-22] MEDS: guaiFENesin ER 600 MG TAB PO SCH ×2 (09:01→20:26)
[2022-05-22] MEDS: Ascorbic Acid 500 mg Chewable Tablet PO SCH (09:01)
[2022-05-22] MEDS: Fluticasone Propionate Nasal Spray 16 gm Bottle NASAL SCH (09:02)
[2022-05-22] MEDS: Sertraline 100 MG TAB PO SCH (09:04)
[2022-05-22] MEDS: Ondansetron ODT 4 MG TAB PO PRN (16:11)
[2022-05-22] MEDS: hydrOXYzine 10 MG TAB PO PRN (16:24)
[2022-05-22] MEDS: Benzonatate 100 MG CAP PO PRN (16:24)
[2022-05-22] MEDS: Pregabalin 50 MG CAP PO PRN (17:46)
[2022-05-22] MEDS: Zolpidem Tartrate 5 MG TAB PO PRN (20:24)
[2022-05-22] MEDS: Multivit, Therapeutic 1 TAB PO SCH (20:25)
[2022-05-22] MEDS: Nicotine 14 MG PATCH TD SCH (20:26)
[2022-05-22] MEDS: Rosuvastatin 10 MG TAB PO SCH (20:26)
[2022-05-23] MEDS: Ipratropium Bromide 2.5 ml Neb NEB SCH ×4 (00:11→18:13)
[2022-05-23] MEDS: Acetaminophen/Codeine 30-300mg Tablet PO SCH ×4 (00:12→18:13)
[2022-05-23] MEDS: hydrOXYzine 10 MG TAB PO PRN ×2 (00:13→11:10)
[2022-05-23] MEDS: Mometasone/Formoterol 200/5 60 PUFF INH SCH ×2 (06:20→18:21)
[2022-05-23] MEDS: Furosemide 40 MG TAB PO SCH ×2 (06:22→14:32)
[2022-05-23] MEDS: Polyethylene Glycol 3350 17 GM Packet PO PRN (06:23)
[2022-05-23] MEDS: guaiFENesin ER 600 MG TAB PO SCH ×2 (08:54→20:15)
[2022-05-23] MEDS: Pregabalin 50 MG CAP PO PRN ×2 (08:54→20:15)
[2022-05-23] MEDS: Ascorbic Acid 500 mg Chewable Tablet PO SCH (08:54)
[2022-05-23] MEDS: Fluticasone Propionate Nasal Spray 16 gm Bottle NASAL SCH (08:54)
[2022-05-23] MEDS: Magnesium Oxide 400 MG TAB PO SCH (08:55)
[2022-05-23] MEDS: Sertraline 100 MG TAB PO SCH (08:55)
[2022-05-23] MEDS: Spironolactone 25 MG TAB PO SCH (08:56)
[2022-05-23] MEDS: Potassium Chloride 20 MEQ TAB PO SCH (08:56)
[2022-05-23] MEDS: predniSONE 20 MG TAB PO SCH ×2 (08:56→20:16)
[2022-05-23] MEDS: Zinc Sulfate 220 MG CAP PO SCH (08:56)
[2022-05-23] MEDS: cloNIDine 0.1 MG TAB PO SCH ×2 (08:56→20:16)
[2022-05-23] MEDS: Azithromycin 250 MG TAB PO SCH (08:57)
[2022-05-23] MEDS: Clopidogrel Bisulfate 75 MG TAB PO SCH (08:57)
[2022-05-23] MEDS: tiZANidine HCl 4 MG TAB PO PRN (14:32)
[2022-05-23] MEDS: Rosuvastatin 10 MG TAB PO SCH (20:15)
[2022-05-23] MEDS: Zolpidem Tartrate 5 MG TAB PO PRN (20:15)
[2022-05-23] MEDS: Multivit, Therapeutic 1 TAB PO SCH (20:16)
[2022-05-23] MEDS: Bisacodyl 5 MG TAB PO PRN (20:17)
[2022-05-24] MEDS: Ipratropium Bromide 2.5 ml Neb NEB SCH ×4 (00:01→17:44)
[2022-05-24] MEDS: Acetaminophen/Codeine 30-300mg Tablet PO SCH ×4 (00:03→17:46)
[2022-05-24] MEDS: tiZANidine HCl 4 MG TAB PO PRN (00:04)
[2022-05-24] MEDS: Milk Of Magnesia 30 ML UDCUP PO PRN ×2 (02:40→20:28)
[2022-05-24] MEDS: Benzonatate 100 MG CAP PO PRN (02:40)
[2022-05-24] MEDS: Furosemide 40 MG TAB PO SCH ×2 (05:16→15:12)
[2022-05-24] MEDS: hydrOXYzine 25 MG TAB PO PRN ×2 (05:16→15:17)
[2022-05-24] MEDS: Pregabalin 50 MG CAP PO PRN ×2 (05:16→15:17)
[2022-05-24] MEDS: Mometasone/Formoterol 200/5 60 PUFF INH SCH ×2 (06:14→17:50)
[2022-05-24] MEDS: Polyethylene Glycol 3350 17 GM Packet PO PRN (08:41)
[2022-05-24] MEDS: Fluticasone Propionate Nasal Spray 16 gm Bottle NASAL SCH (08:42)
[2022-05-24] MEDS: cloNIDine 0.1 MG TAB PO SCH ×2 (08:44→20:28)
[2022-05-24] MEDS: Bisacodyl 5 MG TAB PO PRN (08:44)
[2022-05-24] MEDS: Sertraline 100 MG TAB PO SCH (08:45)
[2022-05-24] MEDS: guaiFENesin ER 600 MG TAB PO SCH ×2 (08:46→20:30)
[2022-05-24] MEDS: Zinc Sulfate 220 MG CAP PO SCH (08:46)
[2022-05-24] MEDS: Clopidogrel Bisulfate 75 MG TAB PO SCH (08:46)
[2022-05-24] MEDS: predniSONE 20 MG TAB PO SCH ×2 (08:46→20:29)
[2022-05-24] MEDS: Ascorbic Acid 500 mg Chewable Tablet PO SCH (08:46)
[2022-05-24] MEDS: Spironolactone 25 MG TAB PO SCH (08:47)
[2022-05-24] MEDS: Magnesium Oxide 400 MG TAB PO SCH (08:47)
[2022-05-24] MEDS: Potassium Chloride 20 MEQ TAB PO SCH (08:47)
[2022-05-24] MEDS: Ondansetron ODT 4 MG TAB PO PRN (09:26)
[2022-05-24] MEDS ORDERED: Bisacodyl 10 MG SUPP PR PRN (10:26)
[2022-05-24] MEDS: Multivit, Therapeutic 1 TAB PO SCH (20:29)
[2022-05-24] MEDS: Rosuvastatin 10 MG TAB PO SCH (20:30)
[2022-05-24] MEDS: Zolpidem Tartrate 5 MG TAB PO PRN (20:30)
[2022-05-25] MEDS: Acetaminophen/Codeine 30-300mg Tablet PO SCH ×4 (00:14→17:09)
[2022-05-25] MEDS: Ipratropium Bromide 2.5 ml Neb NEB SCH ×5 (00:15→23:39)
[2022-05-25] MEDS: Mometasone/Formoterol 200/5 60 PUFF INH SCH ×2 (06:06→18:04)
[2022-05-25] MEDS: Furosemide 40 MG TAB PO SCH ×2 (06:08→13:35)
[2022-05-25] MEDS: Sertraline 100 MG TAB PO SCH (09:33)
[2022-05-25] MEDS: Zinc Sulfate 220 MG CAP PO SCH (09:33)
[2022-05-25] MEDS: Potassium Chloride 20 MEQ TAB PO SCH (09:34)
[2022-05-25] MEDS: Ascorbic Acid 500 mg Chewable Tablet PO SCH (09:35)
[2022-05-25] MEDS: cloNIDine 0.1 MG TAB PO SCH ×2 (09:35→20:48)
[2022-05-25] MEDS: Magnesium Oxide 400 MG TAB PO SCH (09:35)
[2022-05-25] MEDS: Clopidogrel Bisulfate 75 MG TAB PO SCH (09:35)
[2022-05-25] MEDS: predniSONE 20 MG TAB PO SCH (09:35)
[2022-05-25] MEDS: Spironolactone 25 MG TAB PO SCH (09:35)
[2022-05-25] MEDS: guaiFENesin ER 600 MG TAB PO SCH ×2 (09:35→20:48)
[2022-05-25] MEDS: Fluticasone Propionate Nasal Spray 16 gm Bottle NASAL SCH (09:35)
[2022-05-25] MEDS: hydrOXYzine 25 MG TAB PO PRN (09:41)
[2022-05-25] MEDS: Polyethylene Glycol 3350 17 GM Packet PO PRN (13:43)
[2022-05-25] MEDS: Bisacodyl 5 MG TAB PO PRN (13:43)
[2022-05-25] MEDS: Milk Of Magnesia 30 ML UDCUP PO PRN (13:43)
[2022-05-25] MEDS: Pregabalin 50 MG CAP PO PRN (16:18)
[2022-05-25] MEDS: Multivit, Therapeutic 1 TAB PO SCH (20:47)
[2022-05-25] MEDS: Rosuvastatin 10 MG TAB PO SCH (20:47)
[2022-05-25] MEDS: Zolpidem Tartrate 5 MG TAB PO PRN (21:40)
[2022-05-26] MEDS: Acetaminophen/Codeine 30-300mg Tablet PO SCH ×4 (00:04→18:21)
[2022-05-26] MEDS: Furosemide 40 MG TAB PO SCH ×2 (05:35→14:31)
[2022-05-26] MEDS: Ipratropium Bromide 2.5 ml Neb NEB SCH ×3 (05:35→18:22)
[2022-05-26] MEDS: Mometasone/Formoterol 200/5 60 PUFF INH SCH ×2 (05:57→21:14)
[2022-05-26] MEDS: Potassium Chloride 20 MEQ TAB PO SCH (09:09)
[2022-05-26] MEDS: Sertraline 100 MG TAB PO SCH (09:09)
[2022-05-26] MEDS: hydrOXYzine 25 MG TAB PO PRN (09:09)
[2022-05-26] MEDS: Magnesium Oxide 400 MG TAB PO SCH (09:10)
[2022-05-26] MEDS: Zinc Sulfate 220 MG CAP PO SCH (09:10)
[2022-05-26] MEDS: Clopidogrel Bisulfate 75 MG TAB PO SCH (09:11)
[2022-05-26] MEDS: predniSONE 20 MG TAB PO SCH (09:11)
[2022-05-26] MEDS: Spironolactone 25 MG TAB PO SCH (09:12)
[2022-05-26] MEDS: Ascorbic Acid 500 mg Chewable Tablet PO SCH (09:12)
[2022-05-26] MEDS: guaiFENesin ER 600 MG TAB PO SCH ×2 (09:12→21:16)
[2022-05-26] MEDS: cloNIDine 0.1 MG TAB PO SCH ×2 (09:30→21:16)
[2022-05-26] MEDS: Fluticasone Propionate Nasal Spray 16 gm Bottle NASAL SCH (09:31)
[2022-05-26] MEDS: Milk Of Magnesia 30 ML UDCUP PO PRN (12:38)
[2022-05-26] MEDS: Ondansetron ODT 4 MG TAB PO PRN (12:38)
[2022-05-26] MEDS: Rosuvastatin 10 MG TAB PO SCH (21:15)
[2022-05-26] MEDS: Multivit, Therapeutic 1 TAB PO SCH (21:16)
[2022-05-26] MEDS: Zolpidem Tartrate 5 MG TAB PO PRN (21:16)
[2022-05-27] MEDS: Ipratropium Bromide 2.5 ml Neb NEB SCH ×5 (00:19→23:58)
[2022-05-27] MEDS: hydrOXYzine 25 MG TAB PO PRN (00:29)
[2022-05-27] MEDS: Acetaminophen/Codeine 30-300mg Tablet PO SCH ×4 (00:45→17:39)
[2022-05-27] MEDS: Furosemide 40 MG TAB PO SCH ×2 (05:52→14:53)
[2022-05-27] MEDS: Mometasone/Formoterol 200/5 60 PUFF INH SCH ×2 (06:05→21:34)
[2022-05-27] MEDS: Sertraline 100 MG TAB PO SCH (08:58)
[2022-05-27] MEDS: cloNIDine 0.1 MG TAB PO SCH ×2 (08:59→21:33)
[2022-05-27] MEDS: Spironolactone 25 MG TAB PO SCH (08:59)
[2022-05-27] MEDS: predniSONE 20 MG TAB PO SCH (09:00)
[2022-05-27] MEDS: guaiFENesin ER 600 MG TAB PO SCH ×2 (09:00→21:33)
[2022-05-27] MEDS: Zinc Sulfate 220 MG CAP PO SCH (09:00)
[2022-05-27] MEDS: Magnesium Oxide 400 MG TAB PO SCH (09:00)
[2022-05-27] MEDS: Ascorbic Acid 500 mg Chewable Tablet PO SCH (09:00)
[2022-05-27] MEDS: Potassium Chloride 20 MEQ TAB PO SCH (09:00)
[2022-05-27] MEDS: Clopidogrel Bisulfate 75 MG TAB PO SCH (09:00)
[2022-05-27] MEDS: Fluticasone Propionate Nasal Spray 16 gm Bottle NASAL SCH (09:01)
[2022-05-27] MEDS: tiZANidine HCl 4 MG TAB PO PRN (09:12)
[2022-05-27] MEDS: Ondansetron ODT 4 MG TAB PO PRN (10:50)
[2022-05-27] MEDS: Pregabalin 50 MG CAP PO PRN (14:52)
[2022-05-27] MEDS: Multivit, Therapeutic 1 TAB PO SCH (21:33)
[2022-05-27] MEDS: Benzonatate 100 MG CAP PO PRN (21:33)
[2022-05-27] MEDS: Rosuvastatin 10 MG TAB PO SCH (21:33)
[2022-05-27] MEDS: Zolpidem Tartrate 5 MG TAB PO PRN (21:33)
[2022-05-28] MEDS: Acetaminophen/Codeine 30-300mg Tablet PO SCH ×4 (00:47→17:56)
[2022-05-28] MEDS: Furosemide 40 MG TAB PO SCH ×2 (05:51→14:07)
[2022-05-28] MEDS: Ipratropium Bromide 2.5 ml Neb NEB SCH ×4 (05:51→23:43)
[2022-05-28] MEDS: Benzonatate 100 MG CAP PO PRN ×2 (06:13→21:59)
[2022-05-28] MEDS: Pregabalin 50 MG CAP PO PRN (06:13)
[2022-05-28] MEDS: Sertraline 100 MG TAB PO SCH (08:23)
[2022-05-28] MEDS: Zinc Sulfate 220 MG CAP PO SCH (08:23)
[2022-05-28] MEDS: Clopidogrel Bisulfate 75 MG TAB PO SCH (08:24)
[2022-05-28] MEDS: guaiFENesin ER 600 MG TAB PO SCH ×2 (08:24→21:15)
[2022-05-28] MEDS: cloNIDine 0.1 MG TAB PO SCH ×2 (08:24→21:16)
[2022-05-28] MEDS: hydrOXYzine 25 MG TAB PO PRN (08:25)
[2022-05-28] MEDS: Potassium Chloride 20 MEQ TAB PO SCH (08:25)
[2022-05-28] MEDS: Ascorbic Acid 500 mg Chewable Tablet PO SCH (08:25)
[2022-05-28] MEDS: predniSONE 20 MG TAB PO SCH (08:25)
[2022-05-28] MEDS: Spironolactone 25 MG TAB PO SCH (08:25)
[2022-05-28] MEDS: Magnesium Oxide 400 MG TAB PO SCH (08:26)
[2022-05-28] MEDS: Mometasone/Formoterol 200/5 60 PUFF INH SCH ×2 (08:26→21:16)
[2022-05-28] MEDS: Fluticasone Propionate Nasal Spray 16 gm Bottle NASAL SCH (08:43)
[2022-05-28] MEDS: Rosuvastatin 10 MG TAB PO SCH (21:15)
[2022-05-28] MEDS: Zolpidem Tartrate 5 MG TAB PO PRN (21:16)
[2022-05-28] MEDS: Multivit, Therapeutic 1 TAB PO SCH (21:16)
[2022-05-29] MEDS: Acetaminophen/Codeine 30-300mg Tablet PO SCH ×4 (00:03→17:59)
[2022-05-29] MEDS: Furosemide 40 MG TAB PO SCH ×2 (05:38→13:56)
[2022-05-29] MEDS: Ipratropium Bromide 2.5 ml Neb NEB SCH ×3 (05:38→17:55)
[2022-05-29] MEDS: Sertraline 100 MG TAB PO SCH (09:11)
[2022-05-29] MEDS: Potassium Chloride 20 MEQ TAB PO SCH (09:11)
[2022-05-29] MEDS: predniSONE 20 MG TAB PO SCH (09:12)
[2022-05-29] MEDS: Magnesium Oxide 400 MG TAB PO SCH (09:12)
[2022-05-29] MEDS: Zinc Sulfate 220 MG CAP PO SCH (09:12)
[2022-05-29] MEDS: Ascorbic Acid 500 mg Chewable Tablet PO SCH (09:13)
[2022-05-29] MEDS: Spironolactone 25 MG TAB PO SCH (09:13)
[2022-05-29] MEDS: guaiFENesin ER 600 MG TAB PO SCH ×2 (09:13→20:47)
[2022-05-29] MEDS: Clopidogrel Bisulfate 75 MG TAB PO SCH (09:13)
[2022-05-29] MEDS: Mometasone/Formoterol 200/5 60 PUFF INH SCH ×2 (09:33→20:48)
[2022-05-29] MEDS: cloNIDine 0.1 MG TAB PO SCH ×2 (09:34→20:47)
[2022-05-29] MEDS: Fluticasone Propionate Nasal Spray 16 gm Bottle NASAL SCH (09:34)
[2022-05-29] MEDS: Benzonatate 100 MG CAP PO PRN (14:01)
[2022-05-29] MEDS: tiZANidine HCl 4 MG TAB PO PRN (14:01)
[2022-05-29] MEDS: Rosuvastatin 10 MG TAB PO SCH (20:47)
[2022-05-29] MEDS: Multivit, Therapeutic 1 TAB PO SCH (20:47)
[2022-05-29] MEDS: hydrOXYzine 25 MG TAB PO PRN (20:51)
[2022-05-29] MEDS: Zolpidem Tartrate 5 MG TAB PO PRN (20:51)
[2022-05-30] MEDS: Ipratropium/Albuterol 3 ML NEB NEB PRN (00:01)
[2022-05-30] MEDS: tiZANidine HCl 4 MG TAB PO PRN (00:01)
[2022-05-30] MEDS: Ipratropium Bromide 2.5 ml Neb NEB SCH ×4 (00:06→18:17)
[2022-05-30] MEDS: Acetaminophen/Codeine 30-300mg Tablet PO SCH ×4 (05:10→18:16)
[2022-05-30] MEDS: Furosemide 40 MG TAB PO SCH ×2 (05:10→13:15)
[2022-05-30] MEDS: Pregabalin 50 MG CAP PO PRN ×2 (05:11→15:06)
[2022-05-30] MEDS: Sertraline 100 MG TAB PO SCH (09:27)
[2022-05-30] MEDS: cloNIDine 0.1 MG TAB PO SCH ×2 (09:27→21:31)
[2022-05-30] MEDS: predniSONE 20 MG TAB PO SCH (09:28)
[2022-05-30] MEDS: Clopidogrel Bisulfate 75 MG TAB PO SCH (09:29)
[2022-05-30] MEDS: Zinc Sulfate 220 MG CAP PO SCH (09:29)
[2022-05-30] MEDS: Fluticasone Propionate Nasal Spray 16 gm Bottle NASAL SCH (09:30)
[2022-05-30] MEDS: Ascorbic Acid 500 mg Chewable Tablet PO SCH (09:30)
[2022-05-30] MEDS: Spironolactone 25 MG TAB PO SCH (09:30)
[2022-05-30] MEDS: Magnesium Oxide 400 MG TAB PO SCH (09:30)
[2022-05-30] MEDS: guaiFENesin ER 600 MG TAB PO SCH ×2 (09:30→21:31)
[2022-05-30] MEDS: Potassium Chloride 20 MEQ TAB PO SCH (09:30)
[2022-05-30] MEDS: Mometasone/Formoterol 200/5 60 PUFF INH SCH ×2 (09:31→21:30)
[2022-05-30] MEDS: hydrOXYzine 25 MG TAB PO PRN ×2 (09:58→21:31)
[2022-05-30] MEDS: Benzonatate 100 MG CAP PO PRN (15:05)
[2022-05-30] MEDS: Cepastat Lozenges 1 LOZ PO PRN (18:33)
[2022-05-30] MEDS: Multivit, Therapeutic 1 TAB PO SCH (21:31)
[2022-05-30] MEDS: Rosuvastatin 10 MG TAB PO SCH (21:31)
[2022-05-30] MEDS: Zolpidem Tartrate 5 MG TAB PO PRN (21:31)
[2022-05-30] MEDS: Bisacodyl 5 MG TAB PO PRN (21:37)
[2022-05-31] MEDS: Ipratropium Bromide 2.5 ml Neb NEB SCH ×5 (01:00→23:59)
[2022-05-31] MEDS: Acetaminophen/Codeine 30-300mg Tablet PO SCH ×4 (01:00→18:29)
[2022-05-31] MEDS: Ipratropium/Albuterol 3 ML NEB NEB PRN (01:01)
[2022-05-31] MEDS: Furosemide 40 MG TAB PO SCH ×2 (05:31→13:22)
[2022-05-31] MEDS: Cepastat Lozenges 1 LOZ PO PRN ×2 (06:02→18:56)
[2022-05-31] MEDS: Pregabalin 50 MG CAP PO PRN ×2 (09:54→23:59)
[2022-05-31] MEDS: Sertraline 100 MG TAB PO SCH (09:55)
[2022-05-31] MEDS: Zinc Sulfate 220 MG CAP PO SCH (09:56)
[2022-05-31] MEDS: predniSONE 20 MG TAB PO SCH (09:56)
[2022-05-31] MEDS: Spironolactone 25 MG TAB PO SCH (09:57)
[2022-05-31] MEDS: Magnesium Oxide 400 MG TAB PO SCH (09:57)
[2022-05-31] MEDS: Ascorbic Acid 500 mg Chewable Tablet PO SCH (09:57)
[2022-05-31] MEDS: cloNIDine 0.1 MG TAB PO SCH ×2 (09:58→20:42)
[2022-05-31] MEDS: Potassium Chloride 20 MEQ TAB PO SCH (10:01)
[2022-05-31] MEDS: guaiFENesin ER 600 MG TAB PO SCH ×2 (10:01→20:42)
[2022-05-31] MEDS: Clopidogrel Bisulfate 75 MG TAB PO SCH (10:01)
[2022-05-31] MEDS: Mometasone/Formoterol 200/5 60 PUFF INH SCH ×2 (10:02→20:43)
[2022-05-31] MEDS: Fluticasone Propionate Nasal Spray 16 gm Bottle NASAL SCH (10:04)
[2022-05-31] MEDS: Benzonatate 100 MG CAP PO PRN (10:27)
[2022-05-31] MEDS: Milk Of Magnesia 30 ML UDCUP PO PRN (10:27)
[2022-05-31] MEDS: Multivit, Therapeutic 1 TAB PO SCH (20:42)
[2022-05-31] MEDS: Rosuvastatin 10 MG TAB PO SCH (20:42)
[2022-05-31] MEDS: Zolpidem Tartrate 5 MG TAB PO PRN (20:42)
[2022-05-31] MEDS: hydrOXYzine 25 MG TAB PO PRN (20:43)
[2022-06-01] MEDS: Ondansetron ODT 4 MG TAB PO PRN
[2022-06-01] MEDS: Acetaminophen/Codeine 30-300mg Tablet PO SCH ×4 (05:41→18:31)
[2022-06-01] MEDS: Furosemide 40 MG TAB PO SCH ×2 (05:41→13:40)
[2022-06-01] MEDS: Ipratropium Bromide 2.5 ml Neb NEB SCH ×3 (05:41→18:32)
[2022-06-01] MEDS: Clopidogrel Bisulfate 75 MG TAB PO SCH (10:18)
[2022-06-01] MEDS: guaiFENesin ER 600 MG TAB PO SCH ×2 (10:18→21:28)
[2022-06-01] MEDS: cloNIDine 0.1 MG TAB PO SCH ×2 (10:19→21:28)
[2022-06-01] MEDS: Ascorbic Acid 500 mg Chewable Tablet PO SCH (10:19)
[2022-06-01] MEDS: Potassium Chloride 20 MEQ TAB PO SCH (10:19)
[2022-06-01] MEDS: predniSONE 20 MG TAB PO SCH (10:20)
[2022-06-01] MEDS: Sertraline 100 MG TAB PO SCH (10:20)
[2022-06-01] MEDS: Zinc Sulfate 220 MG CAP PO SCH (10:20)
[2022-06-01] MEDS: Spironolactone 25 MG TAB PO SCH (10:20)
[2022-06-01] MEDS: Magnesium Oxide 400 MG TAB PO SCH (10:20)
[2022-06-01] MEDS: Milk Of Magnesia 30 ML UDCUP PO PRN (10:21)
[2022-06-01] MEDS: Bisacodyl 5 MG TAB PO PRN (10:21)
[2022-06-01] MEDS: Pregabalin 50 MG CAP PO PRN (10:34)
[2022-06-01] MEDS: Fluticasone Propionate Nasal Spray 16 gm Bottle NASAL SCH (10:35)
[2022-06-01] MEDS: Benzonatate 100 MG CAP PO PRN ×2 (10:35→21:29)
[2022-06-01] MEDS: Mometasone/Formoterol 200/5 60 PUFF INH SCH ×2 (10:36→21:27)
[2022-06-01] MEDS: Cepastat Lozenges 1 LOZ PO PRN (18:31)
[2022-06-01] MEDS: Multivit, Therapeutic 1 TAB PO SCH (21:28)
[2022-06-01] MEDS: hydrOXYzine 25 MG TAB PO PRN (21:28)
[2022-06-01] MEDS: Rosuvastatin 10 MG TAB PO SCH (21:28)
[2022-06-01] MEDS: Zolpidem Tartrate 5 MG TAB PO PRN (21:28)
[2022-06-02] MEDS: Acetaminophen/Codeine 30-300mg Tablet PO SCH ×5 (01:09→23:28)
[2022-06-02] MEDS: Ipratropium Bromide 2.5 ml Neb NEB SCH ×5 (01:09→23:28)
[2022-06-02] MEDS: Furosemide 40 MG TAB PO SCH ×3 (05:30→15:00)
[2022-06-02] MEDS: Cepastat Lozenges 1 LOZ PO PRN ×4 (05:39→20:01)
[2022-06-02] MEDS: Milk Of Magnesia 30 ML UDCUP PO PRN (09:16)
[2022-06-02] MEDS: Pregabalin 50 MG CAP PO PRN ×2 (09:16→16:12)
[2022-06-02] MEDS: Bisacodyl 5 MG TAB PO PRN (09:17)
[2022-06-02] MEDS: Zinc Sulfate 220 MG CAP PO SCH (09:17)
[2022-06-02] MEDS: Magnesium Oxide 400 MG TAB PO SCH (09:17)
[2022-06-02] MEDS: Sertraline 100 MG TAB PO SCH (09:18)
[2022-06-02] MEDS: Clopidogrel Bisulfate 75 MG TAB PO SCH (09:18)
[2022-06-02] MEDS: guaiFENesin ER 600 MG TAB PO SCH ×2 (09:18→20:01)
[2022-06-02] MEDS: predniSONE 20 MG TAB PO SCH (09:18)
[2022-06-02] MEDS: Potassium Chloride 20 MEQ TAB PO SCH (09:19)
[2022-06-02] MEDS: Spironolactone 25 MG TAB PO SCH (09:19)
[2022-06-02] MEDS: cloNIDine 0.1 MG TAB PO SCH ×2 (09:19→20:01)
[2022-06-02] MEDS: Fluticasone Propionate Nasal Spray 16 gm Bottle NASAL SCH (09:20)
[2022-06-02] MEDS: Mometasone/Formoterol 200/5 60 PUFF INH SCH ×2 (09:20→20:30)
[2022-06-02] MEDS: Ascorbic Acid 500 mg Chewable Tablet PO SCH (09:20)
[2022-06-02] MEDS: hydrOXYzine 25 MG TAB PO PRN (20:01)
[2022-06-02] MEDS: Rosuvastatin 10 MG TAB PO SCH (20:01)
[2022-06-02] MEDS: Multivit, Therapeutic 1 TAB PO SCH (20:01)
[2022-06-03] MEDS: Ipratropium Bromide 2.5 ml Neb NEB SCH ×3 (05:15→18:46)
[2022-06-03] MEDS: Furosemide 40 MG TAB PO SCH ×2 (05:15→12:42)
[2022-06-03] MEDS: Acetaminophen/Codeine 30-300mg Tablet PO SCH ×3 (05:15→18:46)
[2022-06-03] MEDS: Spironolactone 25 MG TAB PO SCH (09:01)
[2022-06-03] MEDS: Potassium Chloride 20 MEQ TAB PO SCH (09:01)
[2022-06-03] MEDS: Clopidogrel Bisulfate 75 MG TAB PO SCH (09:08)
[2022-06-03] MEDS: cloNIDine 0.1 MG TAB PO SCH ×2 (09:08→20:37)
[2022-06-03] MEDS: Ascorbic Acid 500 mg Chewable Tablet PO SCH (09:08)
[2022-06-03] MEDS: Bisacodyl 5 MG TAB PO PRN (09:08)
[2022-06-03] MEDS: guaiFENesin ER 600 MG TAB PO SCH ×2 (09:08→20:37)
[2022-06-03] MEDS: predniSONE 20 MG TAB PO SCH (09:09)
[2022-06-03] MEDS: Sertraline 100 MG TAB PO SCH (09:09)
[2022-06-03] MEDS: Magnesium Oxide 400 MG TAB PO SCH (09:09)
[2022-06-03] MEDS: Zinc Sulfate 220 MG CAP PO SCH (09:09)
[2022-06-03] MEDS: Polyethylene Glycol 3350 17 GM Packet PO PRN (09:10)
[2022-06-03] MEDS: Cepastat Lozenges 1 LOZ PO PRN ×2 (09:10→20:37)
[2022-06-03] MEDS: Fluticasone Propionate Nasal Spray 16 gm Bottle NASAL SCH (09:18)
[2022-06-03] MEDS: Mometasone/Formoterol 200/5 60 PUFF INH SCH ×2 (09:18→20:40)
[2022-06-03] MEDS: Ondansetron ODT 4 MG TAB PO PRN (15:30)
[2022-06-03 19:18] LABS: Bilirubin Negative (Negative); Blood, Urine Negative (Negative); CAUTI Indications for Culture Alt mental st,lethar; Clarity Clear (Clear); Glucose, Urine (Dipstick) Negative (Negative); Ketone, Urine Negative (Negative); Leukocyte Negative (Negative); Nitrite Negative (Negative); Protein, Urine (Dipstick) 30 mg/dL (Neg-Trace); Urobilinogen 0.2 mg/dL (Less than 2); pH, Urine 7.5 (5.0-9.0)
[2022-06-03 19:20] LABS: Urine Culture Reflex No No
[2022-06-03 19:25] LABS: RBC/HPF None Seen HPF (0-3); Squamous Epithelial 0-3 HPF (0-3); WBC/HPF 0-3 HPF (0-3)
[2022-06-03 19:26] LABS: Bacteria/HPF Rare-Few HPF (None Seen)
[2022-06-03] MEDS: hydrOXYzine 25 MG TAB PO PRN (20:37)
[2022-06-03] MEDS: Multivit, Therapeutic 1 TAB PO SCH (20:37)
[2022-06-03] MEDS: Rosuvastatin 10 MG TAB PO SCH (20:37)
[2022-06-03] MEDS: Benzonatate 100 MG CAP PO PRN (20:38)
[2022-06-04] MEDS: Acetaminophen/Codeine 30-300mg Tablet PO SCH ×4 (01:00→17:52)
[2022-06-04] MEDS: Ipratropium Bromide 2.5 ml Neb NEB SCH ×4 (01:00→17:54)
[2022-06-04] MEDS: Furosemide 40 MG TAB PO SCH ×2 (03:22→13:09)
[2022-06-04] MEDS: Fluticasone Propionate Nasal Spray 16 gm Bottle NASAL SCH (09:36)
[2022-06-04] MEDS: Mometasone/Formoterol 200/5 60 PUFF INH SCH ×2 (09:36→21:22)
[2022-06-04] MEDS: Potassium Chloride 20 MEQ TAB PO SCH (09:38)
[2022-06-04] MEDS: Ascorbic Acid 500 mg Chewable Tablet PO SCH (09:38)
[2022-06-04] MEDS: cloNIDine 0.1 MG TAB PO SCH ×2 (09:38→21:11)
[2022-06-04] MEDS: Spironolactone 25 MG TAB PO SCH (09:38)
[2022-06-04] MEDS: Sertraline 100 MG TAB PO SCH (09:39)
[2022-06-04] MEDS: Clopidogrel Bisulfate 75 MG TAB PO SCH (09:39)
[2022-06-04] MEDS: Cepastat Lozenges 1 LOZ PO PRN ×2 (09:40→18:18)
[2022-06-04] MEDS: guaiFENesin ER 600 MG TAB PO SCH ×2 (09:40→21:11)
[2022-06-04] MEDS: predniSONE 20 MG TAB PO SCH (09:40)
[2022-06-04] MEDS: Zinc Sulfate 220 MG CAP PO SCH (09:40)
[2022-06-04] MEDS: Benzonatate 100 MG CAP PO PRN (09:40)
[2022-06-04] MEDS: Magnesium Oxide 400 MG TAB PO SCH (09:41)
[2022-06-04] MEDS: hydrOXYzine 25 MG TAB PO PRN (13:22)
[2022-06-04] MEDS: Pregabalin 50 MG CAP PO PRN (16:09)
[2022-06-04] MEDS: Multivit, Therapeutic 1 TAB PO SCH (21:11)
[2022-06-04] MEDS: Rosuvastatin 10 MG TAB PO SCH (21:11)
[2022-06-04] MEDS: Zolpidem Tartrate 5 MG TAB PO PRN (21:23)
[2022-06-05] MEDS: Ipratropium Bromide 2.5 ml Neb NEB SCH ×4 (01:00→17:59)
[2022-06-05] MEDS: Acetaminophen/Codeine 30-300mg Tablet PO SCH ×4 (01:00→17:58)
[2022-06-05] MEDS: Furosemide 40 MG TAB PO SCH ×2 (05:09→14:15)
[2022-06-05] MEDS: guaiFENesin ER 600 MG TAB PO SCH ×2 (07:53→21:08)
[2022-06-05] MEDS: Potassium Chloride 20 MEQ TAB PO SCH (07:53)
[2022-06-05] MEDS: Ascorbic Acid 500 mg Chewable Tablet PO SCH (07:55)
[2022-06-05] MEDS: Zinc Sulfate 220 MG CAP PO SCH (07:56)
[2022-06-05] MEDS: Magnesium Oxide 400 MG TAB PO SCH (08:00)
[2022-06-05] MEDS: Spironolactone 25 MG TAB PO SCH (08:00)
[2022-06-05] MEDS: Clopidogrel Bisulfate 75 MG TAB PO SCH ×2 (08:03→08:18)
[2022-06-05] MEDS: Sertraline 100 MG TAB PO SCH (08:18)
[2022-06-05] MEDS: cloNIDine 0.1 MG TAB PO SCH ×2 (08:19→21:08)
[2022-06-05] MEDS: Cepastat Lozenges 1 LOZ PO PRN ×3 (08:20→18:04)
[2022-06-05] MEDS: Benzonatate 100 MG CAP PO PRN ×2 (08:20→21:18)
[2022-06-05] MEDS: Mometasone/Formoterol 200/5 60 PUFF INH SCH ×2 (08:31→21:09)
[2022-06-05] MEDS: Fluticasone Propionate Nasal Spray 16 gm Bottle NASAL SCH (08:31)
[2022-06-05] MEDS: Rosuvastatin 10 MG TAB PO SCH (21:06)
[2022-06-05] MEDS: tiZANidine HCl 4 MG TAB PO PRN (21:08)
[2022-06-05] MEDS: Multivit, Therapeutic 1 TAB PO SCH (21:08)
[2022-06-06] MEDS: Ipratropium Bromide 2.5 ml Neb NEB SCH ×5 (00:18→23:10)
[2022-06-06] MEDS: Acetaminophen/Codeine 30-300mg Tablet PO SCH ×4 (00:23→17:19)
[2022-06-06] MEDS: hydrOXYzine 25 MG TAB PO PRN (00:30)
[2022-06-06] MEDS: Pregabalin 50 MG CAP PO PRN ×2 (04:14→15:34)
[2022-06-06] MEDS: Furosemide 40 MG TAB PO SCH ×2 (06:09→13:51)
[2022-06-06] MEDS: Cepastat Lozenges 1 LOZ PO PRN ×2 (07:59→15:34)
[2022-06-06] MEDS: Sertraline 100 MG TAB PO SCH (08:55)
[2022-06-06] MEDS: Spironolactone 25 MG TAB PO SCH (08:55)
[2022-06-06] MEDS: Mometasone/Formoterol 200/5 60 PUFF INH SCH ×2 (08:55→23:11)
[2022-06-06] MEDS: guaiFENesin ER 600 MG TAB PO SCH ×2 (08:56→22:52)
[2022-06-06] MEDS: Potassium Chloride 20 MEQ TAB PO SCH (08:56)
[2022-06-06] MEDS: Ascorbic Acid 500 mg Chewable Tablet PO SCH (08:56)
[2022-06-06] MEDS: Magnesium Oxide 400 MG TAB PO SCH (08:56)
[2022-06-06] MEDS: Zinc Sulfate 220 MG CAP PO SCH (08:56)
[2022-06-06] MEDS: cloNIDine 0.1 MG TAB PO SCH ×2 (08:56→22:53)
[2022-06-06] MEDS: Clopidogrel Bisulfate 75 MG TAB PO SCH (08:57)
[2022-06-06] MEDS: Fluticasone Propionate Nasal Spray 16 gm Bottle NASAL SCH (11:11)
[2022-06-06] MEDS: Calcium Carbonate 500 MG ChewTAB PO PRN (11:11)
[2022-06-06] MEDS: Zolpidem Tartrate 5 MG TAB PO PRN (22:52)
[2022-06-06] MEDS: Rosuvastatin 10 MG TAB PO SCH (22:52)
[2022-06-06] MEDS: Benzonatate 100 MG CAP PO PRN (22:53)
[2022-06-06] MEDS: Multivit, Therapeutic 1 TAB PO SCH (22:53)
[2022-06-07] MEDS: Acetaminophen/Codeine 30-300mg Tablet PO SCH ×4 (00:57→18:05)
[2022-06-07] MEDS: Ipratropium Bromide 2.5 ml Neb NEB SCH ×4 (05:18→23:04)
[2022-06-07] MEDS: Furosemide 40 MG TAB PO SCH ×2 (05:40→14:19)
[2022-06-07] MEDS: Ipratropium/Albuterol 3 ML NEB NEB PRN (05:40)
[2022-06-07] MEDS: Sertraline 100 MG TAB PO SCH (09:17)
[2022-06-07] MEDS: Potassium Chloride 20 MEQ TAB PO SCH (09:18)
[2022-06-07] MEDS: cloNIDine 0.1 MG TAB PO SCH ×2 (09:18→23:03)
[2022-06-07] MEDS: Mometasone/Formoterol 200/5 60 PUFF INH SCH ×2 (09:19→23:06)
[2022-06-07] MEDS: Ascorbic Acid 500 mg Chewable Tablet PO SCH (09:21)
[2022-06-07] MEDS: Zinc Sulfate 220 MG CAP PO SCH (09:21)
[2022-06-07] MEDS: guaiFENesin ER 600 MG TAB PO SCH ×2 (09:22→23:03)
[2022-06-07] MEDS: Magnesium Oxide 400 MG TAB PO SCH (09:23)
[2022-06-07] MEDS: Spironolactone 25 MG TAB PO SCH (09:24)
[2022-06-07] MEDS: Fluticasone Propionate Nasal Spray 16 gm Bottle NASAL SCH (09:26)
[2022-06-07] MEDS: Pregabalin 50 MG CAP PO PRN ×2 (12:12→23:15)
[2022-06-07] MEDS: Rosuvastatin 10 MG TAB PO SCH (23:02)
[2022-06-07] MEDS: Multivit, Therapeutic 1 TAB PO SCH (23:03)
[2022-06-07] MEDS: Cepastat Lozenges 1 LOZ PO PRN (23:14)
[2022-06-08] MEDS: Acetaminophen/Codeine 30-300mg Tablet PO SCH ×4 (02:38→17:54)
[2022-06-08] MEDS: Ipratropium/Albuterol 3 ML NEB NEB PRN (03:59)
[2022-06-08] MEDS: Furosemide 40 MG TAB PO SCH ×2 (05:15→14:41)
[2022-06-08] MEDS: Ipratropium Bromide 2.5 ml Neb NEB SCH ×4 (05:15→23:28)
[2022-06-08] MEDS: Zinc Sulfate 220 MG CAP PO SCH (09:16)
[2022-06-08] MEDS: Sertraline 100 MG TAB PO SCH (09:16)
[2022-06-08] MEDS: Ascorbic Acid 500 mg Chewable Tablet PO SCH (09:16)
[2022-06-08] MEDS: Potassium Chloride 20 MEQ TAB PO SCH (09:17)
[2022-06-08] MEDS: Spironolactone 25 MG TAB PO SCH (09:17)
[2022-06-08] MEDS: guaiFENesin ER 600 MG TAB PO SCH ×2 (09:17→22:52)
[2022-06-08] MEDS: Clopidogrel Bisulfate 75 MG TAB PO SCH (09:19)
[2022-06-08] MEDS: cloNIDine 0.1 MG TAB PO SCH ×2 (09:19→22:52)
[2022-06-08] MEDS: Magnesium Oxide 400 MG TAB PO SCH (09:20)
[2022-06-08] MEDS: Mometasone/Formoterol 200/5 60 PUFF INH SCH ×2 (09:22→22:53)
[2022-06-08] MEDS: Fluticasone Propionate Nasal Spray 16 gm Bottle NASAL SCH (09:25)
[2022-06-08] MEDS: tiZANidine HCl 4 MG TAB PO PRN (09:29)
[2022-06-08] MEDS: Cepastat Lozenges 1 LOZ PO PRN (22:51)
[2022-06-08] MEDS: Multivit, Therapeutic 1 TAB PO SCH (22:52)
[2022-06-08] MEDS: Rosuvastatin 10 MG TAB PO SCH (22:52)
[2022-06-09] MEDS: Ipratropium/Albuterol 3 ML NEB NEB PRN (00:49)
[2022-06-09] MEDS: Pregabalin 50 MG CAP PO PRN (00:58)
[2022-06-09] MEDS: Acetaminophen/Codeine 30-300mg Tablet PO SCH ×4 (01:19→18:16)
[2022-06-09] MEDS: hydrOXYzine 25 MG TAB PO PRN (02:37)
[2022-06-09] MEDS: Furosemide 40 MG TAB PO SCH ×2 (05:31→14:02)
[2022-06-09] MEDS: Ipratropium Bromide 2.5 ml Neb NEB SCH ×3 (05:31→18:07)
[2022-06-09] MEDS: Sertraline 100 MG TAB PO SCH (08:54)
[2022-06-09] MEDS: Ascorbic Acid 500 mg Chewable Tablet PO SCH (08:55)
[2022-06-09] MEDS: Clopidogrel Bisulfate 75 MG TAB PO SCH (08:55)
[2022-06-09] MEDS: cloNIDine 0.1 MG TAB PO SCH ×2 (08:55→20:54)
[2022-06-09] MEDS: guaiFENesin ER 600 MG TAB PO SCH ×2 (08:56→20:54)
[2022-06-09] MEDS: Potassium Chloride 20 MEQ TAB PO SCH (08:56)
[2022-06-09] MEDS: Spironolactone 25 MG TAB PO SCH (08:58)
[2022-06-09] MEDS: Zinc Sulfate 220 MG CAP PO SCH (08:58)
[2022-06-09] MEDS: Magnesium Oxide 400 MG TAB PO SCH (08:59)
[2022-06-09] MEDS: Mometasone/Formoterol 200/5 60 PUFF INH SCH ×2 (09:00→20:55)
[2022-06-09] MEDS: Fluticasone Propionate Nasal Spray 16 gm Bottle NASAL SCH (09:02)
[2022-06-09] MEDS: Cepastat Lozenges 1 LOZ PO PRN (09:06)
[2022-06-09] MEDS: Ondansetron ODT 4 MG TAB PO PRN (09:54)
[2022-06-09] MEDS: tiZANidine HCl 4 MG TAB PO PRN (10:36)
[2022-06-09] MEDS: Rosuvastatin 10 MG TAB PO SCH (20:54)
[2022-06-09] MEDS: Multivit, Therapeutic 1 TAB PO SCH (20:54)
[2022-06-10] MEDS: Ipratropium Bromide 2.5 ml Neb NEB SCH ×4 (00:33→17:32)
[2022-06-10] MEDS: Acetaminophen/Codeine 30-300mg Tablet PO SCH ×4 (00:54→17:32)
[2022-06-10] MEDS: Furosemide 40 MG TAB PO SCH ×2 (05:17→13:26)
[2022-06-10] MEDS: Spironolactone 25 MG TAB PO SCH (09:40)
[2022-06-10] MEDS: guaiFENesin ER 600 MG TAB PO SCH ×2 (09:40→21:28)
[2022-06-10] MEDS: Zinc Sulfate 220 MG CAP PO SCH (09:40)
[2022-06-10] MEDS: Ascorbic Acid 500 mg Chewable Tablet PO SCH (09:40)
[2022-06-10] MEDS: Clopidogrel Bisulfate 75 MG TAB PO SCH (09:40)
[2022-06-10] MEDS: Sertraline 100 MG TAB PO SCH (09:40)
[2022-06-10] MEDS: cloNIDine 0.1 MG TAB PO SCH ×2 (09:41→21:29)
[2022-06-10] MEDS: Potassium Chloride 20 MEQ TAB PO SCH (09:41)
[2022-06-10] MEDS: Fluticasone Propionate Nasal Spray 16 gm Bottle NASAL SCH (09:42)
[2022-06-10] MEDS: Mometasone/Formoterol 200/5 60 PUFF INH SCH ×2 (09:42→21:36)
[2022-06-10] MEDS: Magnesium Oxide 400 MG TAB PO SCH (09:42)
[2022-06-10] MEDS: tiZANidine HCl 4 MG TAB PO PRN (09:46)
[2022-06-10] MEDS: Ipratropium/Albuterol 3 ML NEB NEB PRN (13:25)
[2022-06-10] MEDS: Multivit, Therapeutic 1 TAB PO SCH (21:28)
[2022-06-10] MEDS: Rosuvastatin 10 MG TAB PO SCH (21:28)
[2022-06-10] MEDS: Calcium Carbonate 500 MG ChewTAB PO PRN (21:34)
[2022-06-11] MEDS: Ipratropium Bromide 2.5 ml Neb NEB SCH ×3 (00:33→12:48)
[2022-06-11] MEDS: Pregabalin 50 MG CAP PO PRN (00:40)
[2022-06-11] MEDS: Acetaminophen/Codeine 30-300mg Tablet PO SCH ×3 (00:44→12:47)
[2022-06-11] MEDS: Furosemide 40 MG TAB PO SCH ×2 (05:38→12:48)
[2022-06-11 05:54] VITALS: TEMP 98.4
[2022-06-11] MEDS: cloNIDine 0.1 MG TAB PO SCH (10:06)
[2022-06-11] MEDS: Clopidogrel Bisulfate 75 MG TAB PO SCH (10:06)
[2022-06-11] MEDS: Potassium Chloride 20 MEQ TAB PO SCH (10:06)
[2022-06-11] MEDS: guaiFENesin ER 600 MG TAB PO SCH (10:06)
[2022-06-11] MEDS: Spironolactone 25 MG TAB PO SCH (10:06)
[2022-06-11] MEDS: Ascorbic Acid 500 mg Chewable Tablet PO SCH (10:07)
[2022-06-11] MEDS: Magnesium Oxide 400 MG TAB PO SCH (10:08)
[2022-06-11] MEDS: Zinc Sulfate 220 MG CAP PO SCH (10:08)
[2022-06-11] MEDS: Sertraline 100 MG TAB PO SCH (10:09)
[2022-06-11] MEDS: Mometasone/Formoterol 200/5 60 PUFF INH SCH (10:10)
[2022-06-11] MEDS: Fluticasone Propionate Nasal Spray 16 gm Bottle NASAL SCH (10:10)
[2022-06-11 10:11] VITALS: BP 125/65
[2022-06-11] MEDS: hydrOXYzine 25 MG TAB PO PRN (10:18)
[2022-06-11] MEDS: Ondansetron ODT 4 MG TAB PO PRN (11:21)
== END 2022-06-11 16:00 | disposition home or self-care (01) | DRG 948 ==
LOC: BURMED 20:01
PROVIDERS: ADMIT Family Medicine; ATTEND Family Medicine
DX: R53.81 Other malaise (principal); J96.11 Chronic respiratory failure with hypoxia; R53.1 Weakness; J44.9 Chronic obstructive pulmonary disease, unspecified; I10 Essential (primary) hypertension; E78.5 Hyperlipidemia, unspecified; F41.9 Anxiety disorder, unspecified; F32.A Depression, unspecified; R13.10 Dysphagia, unspecified; Z86.16 Personal history of COVID-19; Z87.01 Personal history of pneumonia (recurrent); Z79.899 Other long term (current) drug therapy; Z79.02 Long term (current) use of antithrombotics/antiplatelets
CPT/HCPCS: 71045; 81001; 94640; 94664; J7512; J7620; Q0162